=== PATIENT | female | born 1940 | race Caucasian/White ===

== ENCOUNTER 2023-05-27 20:51 | Emergency (ER) | payer MEDICARE, OTHER, SELFPAY ==
--- NOTE | ~2023-05-27 | XR_ITS ---
EXAMINATION: XR CHEST CLINICAL INFORMATION: MS COMPARISON: None available. TECHNIQUE: Frontal view of the chest was obtained. FINDINGS: There is mild cardiac enlargement. No evidence of CHF. Bibasilar atelectasis is present. No focal consolidations with air bronchograms. Tiny amount of blunting of the right lateral costophrenic angle is present. No left pleural effusion. There is a probable old healed fracture involving the proximal right humerus. XR/XR chest 1V IMPRESSION: Mild cardiomegaly. No acute intrathoracic disease.
[2023-05-27 21:00] VITALS: BP 139/85; BP 144/82; PULSE 82; PULSE 83; RESP 20; TEMP 36.8; O2SAT 92; O2SAT 95; BMI 27.9
[2023-05-27 21:30] VITALS: PULSE 75; RESP 16; TEMP 36.8; O2SAT 99
--- NOTE | 2023-05-27 21:34 | ECG_ITS ---
Test Reason : SOB Blood Pressure : / mmHG Vent. Rate : 074 BPM Atrial Rate : 074 BPM P-R Int : 134 ms QRS Dur : 080 ms QT Int : 420 ms P-R-T Axes : 060 008 087 degrees QTc Int : 466 ms Normal sinus rhythm Nonspecific T wave abnormality Abnormal ECG No previous ECGs available Referred By: Anibal García Electronically Signed By:STEPHON BETTENCOURT MD
[2023-05-27 21:35] VITALS: BP 132/74
--- NOTE | 2023-05-27 21:48 | ED_ITS ---
HPI - General Adult General Chief complaint: Weakness Stated complaint: FEELING SICK X1WK, WEAK, NAUSEA, CANT EAT Time Seen by Provider: 05/27/23 21:24 Source: patient Mode of arrival: EMS Limitations: no limitations History of Present Illness HPI narrative: Patient 83 years old with no significant past medical history not on any medication no history of dementia comes here with family for feeling weak and little out for last 1 week patient lives alone for last 1 week patient does not feel good not drinking or eating much feel fatigued had subjective fever earlier been coughing for last 1 week mostly dry no abdominal pain no urinary complaint patient admitted x3 with hard of hearing Related Data Previous Rx's Medication Instructions Recorded benzonatate 200 mg capsule 200 mg PO TID PRN cough #30 caps 05/27/23 cefuroxime axetil 250 mg tablet 250 mg PO BID 7 days #14 tabs 05/27/23 Allergies Allergy/AdvReac Type Severity Reaction Status Date / Time No Known Allergies Allergy Verified 05/27/23 21:31 Review of Systems 2 Review of Systems: Yes all other systems are reviewed and are negative [facility] Social History Social History Smoked in Last 30 Days: No Use of substances other than those prescribed or required for medical reasons: No Advance Directives: No Advance Directives Information Provided: Yes Physical Exam ED Vital Signs: Vital Signs - 24 hr 05/27/23 21:00 05/27/23 21:30 05/27/23 21:35 Temperature 98.3 F 98.3 F Pulse Rate 83 75 Respiratory Rate 20 16 Blood Pressure 139/85 132/74 Pulse Oximetry 95 99 Oxygen Delivery Method Nasal Cannula Room Air BMI result Body Mass Index 27.9 Appearance: Alert. Oriented X3. No acute distress. hard of hearing Eyes: PERRLA, No Nystagmus ENT: Pharynx normal. Oral Mucosa dry Neck: Normal inspection. Neck supple. CVS: Normal heart rate and rhythm. Pulses normal. Respiratory: No respiratory distress. Equal air entry bilateral, no wheezing/rales/rhonchi Abdomen: Soft and nontender. Bowel sounds are present, no mass palpable, no CVA tenderness Skin: Skin warm and dry. Normal skin color. Normal skin turgor. Extremities: No lower extremity edema. No calf tenderness Neuro: Oriented X 3. No motor deficit. No sensory deficit.No cerebellar signs , cranial nerves II-XII intact Medications Administered Discontinued Medications Generic Name Dose Route Start Last Admin Trade Name Freq PRN Reason Stop Dose Admin Sodium Chloride 1,000 mls @ 999 mls/hr 05/27/23 21:31 05/27/23 23:38 Ns IV 05/27/23 22:31 Infused .Q1H1M ONE Infusion Ceftriaxone Sodium 1 gm/ 50 mls @ 100 mls/hr 05/27/23 22:42 05/27/23 23:39 Sodium Chloride IV 05/27/23 23:11 Infused ONCE ONE Infusion Medical Decision Making Medical Decision Making [facility] Narrative: patient with increased weakness with no significant past medical history will check for metabolic etiology/infection level offered patient has UTI and COVID-19 chest x-ray negative infiltrate saturating 99% on room air will discharge patient home on Ceftin and supportive treatment Differential Diagnosis Differential Diagnoses: The differential diagnosis associated with the presentation includes UTI/metabolic encephalopathy/Randall /COVID/ viral infection Lab Data [facility] Lab Attestation statement: I reviewed the patient's lab results. 05/27/23 21:49 05/27/23 21:49 Labs: Lab Results 05/27/23 05/27/23 Range/Units 21:49 22:09 WBC 3.1 L (4.8-10.8) X10*3/uL RBC 5.36 (4.20-5.50) X10*6/uL Hgb 15.7 (12.0-16.0) g/dl Hct 47.2 H (37.0-47.0) % MCV 88.1 (80.0-98.0) fL MCH 29.3 (27.0-33.0) pg MCHC 33.3 (31.0-35.0) g/dl RDW 13.1 (11.0-16.0) % Plt Count 59 L (160-400) X10*3/uL MPV 11.4 (9.4-12.3) fL Immature Gran % (Auto) 0.0 (0.0-0.4) % Neut % (Auto) 72.9 (45-73) % Lymph % (Auto) 14.4 L (20-40) % [place] % (Auto) 12.7 H (2-11) % Eos % (Auto) 0.0 (0-4) % Baso % (Auto) 0.0 (0-2) % Lymph # (Auto) 0.4 L (1.2-4.9) X10*3/uL [place] # (Auto) 0.4 (0.1-1.2) X10*3/uL Eos # (Auto) 0.0 (0.0-0.4) X10*3/uL Baso # (Auto) 0.0 (0.0-0.2) X10*3/uL Abs Immat Gran (auto) 0.00 (0.00-0.03) X10*3/uL Absolute Neuts (auto) 2.2 (2.0-8.3) x10*3/uL Absolute Nucleated RBC 0.000 (0.0-0.012) X10*3/uL Nucleated RBC % (auto) 0.0 (0.0-0.2) /100WBC Smear Tech's Comments VERIFIED Sodium 141 (135-145) mmol/L Potassium 4.0 (3.3-5.1) mmol/L Chloride 102 (96-108) mmol/L Carbon Dioxide 23 (22-29) mmol/L Anion Gap 20 (12-20) BUN 30 H (9-16) mg/dL Creatinine 0.97 (0.5-1.4) mg/dL Estim Creat Clear Calc 39.8 Estimated GFR 55 Random Glucose 129 H (60-115) mg/dL Lactic Acid 1.9 (0.5-2.0) mmol/L Calcium 9.2 (8.4-10.2) mg/dL Magnesium 2.4 (1.6-2.6) mg/dL Total Bilirubin 0.9 (0.0-1.0) mg/dL AST 39 H (5-31) U/L ALT 35 H (0-31) U/L Alkaline Phosphatase 50 (39-117) U/L Total Protein 7.5 (6.5-8.0) g/dL Albumin 4.0 (3.5-5.0) g/dL Lipase 37 (8-78) U/L Urine Color Dark Yellow Urine Appearance Cloudy Urine pH 5.5 (5.0-9.0) Ur Specific [place] 1.020 (1.005-1.025) Urine Protein 30 (1+) H (Neg-Trace) mg/dL Urine Glucose (UA) Negative (Negative) mg/dL Urine Ketones 40 (Negative) mg/dL Urine Blood Small (1+) H (Negative) Urine Nitrite Negative (Negative) Ur Leukocyte Esterase Small (1+) H (Negative) Urine RBC 6-10 H (0-2) /HPF Urine WBC 21-50 H (0-5) /HPF Ur Squamous Epith Cells 11-20 (0-2) /HPF Urine Bacteria 2+ (None Seen) Hyaline Casts >20 (0-2) /LPF COVID-19 (BILL) Positive A (Negative) COVID-19 Clin Com See Note Independent Interpretation I performed an independent interpretation of an: EKG Interpretation: normal sinus rhythm heart rate 74 beats per minute normal interval normal axis no acute ST T wave change no acute ischemia Discharge Plan Discharge Clinical Impression: COVID-19, Acute UTI Patient Disposition: Home, Self-Care Instructions: Urinary Tract Infection in Older Adults (ED), COVID-19 (Coronavirus Disease 2019) (ED) Additional Instructions: drink plenty of fluids social distancing as Advised cough drops and antibiotic as prescribed follow-up with PCP as needed Prescriptions: New cefuroxime axetil 250 mg tablet 250 mg PO BID 7 Days Qty: 14 0RF benzonatate 200 mg capsule 200 mg PO TID PRN (Reason: cough) Qty: 30 0RF
[2023-05-27 22:03] LABS: Hemoglobin 15.7 g/dl (12.0-16.0); MANUAL DIFF FLAG SCAN; PLT CLUMP 1; SCAN SMEAR FLAG 1
[2023-05-27 22:05] LABS: COVID-19 Test Positive (Negative); Hematocrit 47.2 % (37.0-47.0); IDNOW Serial# BCCEAD1C; Lymphocytes Absolute Auto 0.4 X10*3/uL (1.2-4.9); Lymphocytes Percent Auto 14.4 % (20-40); Mean Corpuscular HGB Conc 33.3 g/dl (31.0-35.0); Mean Corpuscular Hemoglobin 29.3 pg (27.0-33.0); Mean Corpuscular Volume 88.1 fL (80.0-98.0); Mean Platelet Volume 11.4 fL (9.4-12.3); Monocytes Absolute Auto 0.4 X10*3/uL (0.1-1.2); Monocytes Percent Auto 12.7 % (2-11); Neutrophils Absolute Auto 2.2 x10*3/uL (2.0-8.3); Neutrophils Percent Auto 72.9 % (45-73); Red Blood Count 5.36 X10*6/uL (4.20-5.50); Red Cell Distribution Width 13.1 % (11.0-16.0)
[2023-05-27 22:06] LABS: White Blood Count 3.1 X10*3/uL (4.8-10.8)
[2023-05-27 22:07] LABS: Platelet Count 59 X10*3/uL (160-400)
[2023-05-27 22:10] LABS: Lactic Acid 1.9 mmol/L (0.5-2.0)
[2023-05-27] MEDS: 0.9 % Sodium Chloride 1,000 ML 999 ML IV (22:12)
[2023-05-27 22:15] LABS: Alanine Aminotransferase 35 U/L (0-31); Alkaline Phosphatase 50 U/L (39-117); Anion Gap 20 (12-20); Aspartate Amino Transferase 39 U/L (5-31); Bilirubin Total 0.9 mg/dL (0.0-1.0); Blood Urea Nitrogen 30 mg/dL (9-16); Calcium 9.2 mg/dL (8.4-10.2); Carbon Dioxide 23 mmol/L (22-29); Chloride 102 mmol/L (96-108); Creatinine Clr Calc Pharmacy 39.8; Estimated Glomerular Filt Rate 55; Glucose Random 129 mg/dL (60-115); Lipase 37 U/L (8-78); Magnesium 2.4 mg/dL (1.6-2.6); Sodium 141 mmol/L (135-145); Total Protein 7.5 g/dL (6.5-8.0)
[2023-05-27 22:17] LABS: Appearance Urine Cloudy; Color Urine Dark Yellow; Glucose Urine UA Negative (Negative); Leukocyte Esterase Urine Small (1+) (Negative); Nitrite Urine Negative (Negative); PH 5.5 (5.0-9.0); UMIC TRIGGER UACC YES; Urine Blood Small (1+) (Negative); Urine Ketones 40 mg/dL (Negative); Urine Protein 30 (1+) mg/dL (Neg-Trace)
[2023-05-27 22:28] LABS: Bacteria Urine 2+ (None Seen); Hyaline Casts Urine >20 /LPF (0-2); UACC Culture Trigger YES; WBC Urine 21-50 /HPF (0-5)
[2023-05-27 22:30] LABS: SLIDE REVIEW VERIFIED
--- NOTE | 2023-05-27 22:40 | PC.NURSE ---
ivf infusing via iv inserted by ems L. AC. precautions in place. son at bedside. call desai within reach.
[2023-05-27] MEDS: cefTRIAXone sodium 1 GM in 0.9 % Sodium Chloride 50 ML IV (22:57)
[2023-05-28] VITALS: PULSE 78; RESP 16; O2SAT 95
[2023-05-28] MEDS: Benzonatate 100 MG CAPSULE 200 MG PO (00:06)
== END 2023-05-28 00:38 | disposition home or self-care (01) ==
PROVIDERS: Emergency Provider Internal Medicine
DX: U07.1 COVID-19 (principal); N39.0 Urinary tract infection, site not specified; R11.2 Nausea with vomiting, unspecified; R06.02 Shortness of breath; R94.31 Abnormal electrocardiogram [ECG] [EKG]; R50.9 Fever, unspecified; R05.9 Cough, unspecified; Z79.899 Other long term (current) drug therapy
CPT/HCPCS: 36415; 71045; 80053; 81001; 83605; 83690; 83735; 85025; 87086; 87088; 87147; 87186; 87635; 93005; 96361; 96374; 99284; 99285; J0696

== ENCOUNTER 2023-06-05 13:07 | Inpatient (IN) | payer MEDICARE, OTHER, SELFPAY ==
--- NOTE | ~2023-06-05 | XR_ITS ---
EXAMINATION: XR CHEST CLINICAL INFORMATION: Hypoxia COMPARISON: 05/27/2023 TECHNIQUE: 2 views of the chest were obtained. FINDINGS: Heart and mediastinum within normal limits. Bilateral mid to lower patchy pulmonary opacities. No effusions. Bones are demineralized. XR/XR chest 2V IMPRESSION: Likely multifocal bilateral pneumonias. Follow-up to complete resolution recommended.
--- NOTE | ~2023-06-05 | CT_ITS ---
EXAMINATION: CT HEAD WITHOUT CONTRAST CLINICAL INFORMATION: Dementia COMPARISON: None available. TECHNIQUE: Contiguous axial imaging was performed from the skull base to vertex without intravenous administration of contrast. This CT examination was performed using dose optimization techniques as appropriate, variously including the following: *Automated exposure control *Adjustment of mA and/or kV according to patient size (this includes techniques or standardized protocols for targeted exams where dose is matched to indication/reason for exam; i.e. extremities or head) *Use of iterative reconstruction technique DLP: 547 mGy-cm FINDINGS: There is underlying atrophy. Ventricular dilatation is slightly disproportionately more prominent than sulcal dilatation. Periventricular white matter changes are seen. Small left lacunar infarct. No evolving infarct, mass lesion, mass effect or midline shift. No hemorrhage or extra-axial fluid collections. Sinuses and mastoids are free of disease. Bony structures are intact. Soft tissues are unremarkable. CT/CT head/brain wo IV con IMPRESSION: No acute intracranial pathology. Chronic small vessel ischemia and volume loss. Slightly disproportionate ventricular versus sulcal dilatation, normal pressure hydrocephalus not entirely excluded, correlate clinically.
[2023-06-05 13:17] VITALS: BP 140/78; BP 178/88; PULSE 89; PULSE 96; RESP 16; TEMP 36.7; O2SAT 94; O2SAT 95; BMI 26.6
--- NOTE | 2023-06-05 13:38 | ED.GENADULT ---
HPI - General Adult General Chief complaint: General Medical Stated complaint: UTI Time Seen by Provider: 06/05/23 13:18 Source: patient and EMS Mode of arrival: ambulatory Limitations: altered mental status History of Present Illness HPI narrative: 83-year-old female seen here last week per the family had no history of dementia. Patient denying UTI and was treated is not getting any better per the family. Patient was found to be hypoxic by EMS in the 80s and required several L of oxygen she is not normally on oxygen. Patient has been weak nauseous and not eating. Patient abnormal x-ray and labs other than the UTI patient continues to be altered concerned that this could be acute intracranial injury no CT imaging was done also continued UTI patient is not hypoxic this could be pneumonia or something else that is causing her symptoms Related Data Previous Rx's Medication Instructions Recorded benzonatate 200 mg capsule 200 mg PO TID PRN cough #30 caps 05/27/23 cefuroxime axetil 250 mg tablet 250 mg PO BID 7 days #14 tabs 05/27/23 Allergies Allergy/AdvReac Type Severity Reaction Status Date / Time No Known Allergies Allergy Verified 05/27/23 21:31 Review of Systems Review of Systems: Review of systems: General: Altered per family Patient denies any fever chills recent illness or falls Musculoskeletal: Denies back pain or body aches or other injuries HEENT: denies headache, runny nose, ear pain Respiratory: denies shortness of breath, cough Cardiovascular: no chest pain or palpitations : denies dysuria, frequency Abdomen: no nausea vomiting denies abdominal pain Extremities: no swelling, no pain Skin: no diaphoresis Yes all other systems are reviewed and are negative [facility] Social History Social History Advance Directives: No Physical Exam ED Vital Signs: Vital Signs - 24 hr 06/05/23 13:17 06/05/23 16:00 Temperature 98.1 F Pulse Rate 89 83 Respiratory Rate 16 20 Blood Pressure 178/88 H 149/95 H Pulse Oximetry 95 95 Oxygen Delivery Method Nasal Cannula Nasal Cannula Oxygen Flow Rate 3 BMI result Body Mass Index 26.6 Neurological exam: CN II- XII tested. Patient is alert and oriented to person place and time. Patient has no dysphagia or dysarthia, denies good vision in all four vision bloom no nystagmus on exam, good strength to upper and lower extremities with normal reflexes to brachioradialis, wrist, patella and achilles. Negative romberg, good finger to nose and heel to enciso. General: Well-appearing well-nourished in no signs of distress HEENT: Normocephalic atraumatic Neck: No signs of JVD, no masses no tenderness or lymphadenopathy Cardiovascular: Regular rate and rhythm Respiratory: Clear to auscultation bilaterally Abdomen: Soft nontender no masses Extremities: Normal pedal pulses no signs of edema Skin: Dry warm no rashes Back: No tenderness full ROM NIH Stroke Scale Internal: Initial- Upon Arrival Level of Consciousness: Alert Level of Consciousness Questions: Answers both questions correctly Level of Consciousness Commands: Performs both tasks correctly Best Gaze: Normal Visual: No visual loss Facial Palsy: Normal Motor Arm (Right): No drift Motor Arm (Left): No drift Motor Leg (Right): No drift Motor Leg (Left): No drift Limb Ataxia: Absent Sensory: Normal Best Language: No aphasia Dysarthia: Normal Extinction and Inattention: No abnormality Score: 0 Course Course Course Narrative: 1416 concerning for pneumonia I will start on antibiotics at this time. Reevaluation(s) Reevaluation #1: 1607 labs and serology show the patient is covid positive. Patient has a daughter at the bedside. i will give decadron and admit to medicine she is requiring oxygen at this time. Was covid positive last time she was here but now with pneumnoia and hypoxia. I did communicate with hospitalist about admission. Medications Administered Discontinued Medications Generic Name Dose Route Start Last Admin Trade Name Freq PRN Reason Stop Dose Admin Sodium Chloride 1,000 mls @ 999 mls/hr 06/05/23 13:45 06/05/23 14:28 Ns IV 06/05/23 14:45 999 mls/hr .Q1H1M VALERIANO Administration Piperacillin Sod/Tazobactam 100 mls @ 200 mls/hr 06/05/23 14:14 06/05/23 16:04 Sod 4.5 gm/ Sodium Chloride IV 06/05/23 14:43 200 mls/hr ONCE ONE Administration Medical Decision Making Medical Decision Making MDM Narrative: Patient is hypoxic I will do VBG concern for altered mental status ACS hypoxia with change in mental status I will get CT head is there is done last time patient was here. Differential Diagnosis Differential Diagnoses: The differential diagnosis associated with the presentation includes Acute intracranial hemorrhage acute dementia and delirium pneumonia hypoxia less likely PE ACS also on the differential I also sent off a pneumonia as could be related to some metabolic issue as well as septic workup since Admission/Observation Consideration of admission/observation: Escalation of care including admission/observation considered Consult Healthcare Provider Management of the patient was discussed with: Hospitalist and Account Receivable Clerk [phone] Faust Lab Data MDM Lab Attestation statement: I reviewed the patient's lab results. 06/05/23 15:00 06/05/23 15:00 Labs: Lab Results 06/05/23 06/05/23 06/05/23 Range/Units 15:00 15:14 15:37 WBC 5.4 (4.8-10.8) X10*3/uL RBC 4.68 (4.20-5.50) X10*6/uL Hgb 13.9 (12.0-16.0) g/dl Hct 41.3 (37.0-47.0) % MCV 88.2 (80.0-98.0) fL MCH 29.7 (27.0-33.0) pg MCHC 33.7 (31.0-35.0) g/dl RDW 12.6 (11.0-16.0) % Plt Count 227 D (160-400) X10*3/uL MPV 10.5 (9.4-12.3) fL Immature Gran % (Auto) 0.6 H (0.0-0.4) % Neut % (Auto) 75.0 H (45-73) % Lymph % (Auto) 9.5 L (20-40) % Will % (Auto) 13.8 H (2-11) % Eos % (Auto) 0.7 (0-4) % Baso % (Auto) 0.4 (0-2) % Lymph # (Auto) 0.5 L (1.2-4.9) X10*3/uL Will # (Auto) 0.7 (0.1-1.2) X10*3/uL Eos # (Auto) 0.0 (0.0-0.4) X10*3/uL Baso # (Auto) 0.0 (0.0-0.2) X10*3/uL Abs Immat Gran (auto) 0.03 (0.00-0.03) X10*3/uL Absolute Neuts (auto) 4.0 (2.0-8.3) x10*3/uL Absolute Nucleated RBC 0.000 (0.0-0.012) X10*3/uL Nucleated RBC % (auto) 0.0 (0.0-0.2) /100WBC VBG pH 7.46 H (7.32-7.43) VBG pCO2 41 mmHg VBG pO2 38 mmHg VBG HCO3 29 H (22-26) mmol/L VBG O2 Saturation 56.0 % VBG Base Excess 5.7 mmol/L Sodium 142 (135-145) mmol/L Potassium 3.4 (3.3-5.1) mmol/L Chloride 106 (96-108) mmol/L Carbon Dioxide 24 (22-29) mmol/L Anion Gap 15 (12-20) BUN 17 H (9-16) mg/dL Creatinine 0.59 (0.5-1.4) mg/dL Estim Creat Clear Calc 63.9 Estimated GFR > 60 Random Glucose 93 (60-115) mg/dL Lactic Acid 1.0 (0.5-2.0) mmol/L Calcium 8.7 (8.4-10.2) mg/dL Total Bilirubin 0.8 (0.0-1.0) mg/dL Direct Bilirubin 0.4 (0.0-0.5) mg/dL AST 21 (5-31) U/L ALT 16 (0-31) U/L Alkaline Phosphatase 43 (39-117) U/L Ammonia 22 (13-55) umol/L Troponin I High Sens < 2.7 (<3.5-17.0) ng/L Total Protein 6.5 (6.5-8.0) g/dL Albumin 3.1 L (3.5-5.0) g/dL Lipase 33 (8-78) U/L Urine Color Dark Yellow Urine Appearance Clear Urine pH 6.0 (5.0-9.0) Ur Specific [place] 1.020 (1.005-1.025) Urine Protein Trace (Neg-Trace) mg/dL Urine Glucose (UA) Negative (Negative) mg/dL Urine Ketones 80 (Negative) mg/dL Urine Blood Negative (Negative) Urine Nitrite Negative (Negative) Ur Leukocyte Esterase Negative (Negative) Urine Opiates Screen Not Detected (Not Detect) Urine Fentanyl Screen Not Detected (Not Detect) Ur Barbiturates Screen Not Detected (Not Detect) Ur Phencyclidine Scrn Not Detected (Not Detect) Ur Amphetamines Screen Not Detected (Not Detect) U Benzodiazepines Scrn Not Detected (Not Detect) Urine Cocaine Screen Not Detected (Not Detect) U Marijuana (THC) Screen Not Detected (Not Detect) Ethyl Alcohol < 10 mg/dL COVID-19 (BILL) Positive A (Negative) COVID-19 Clin Com See Note ABG Data Attestation ABG: I personally reviewed and interpreted this ABG as follows: Independent Interpretation I performed an independent interpretation of an: EKG, Rhythm Strip, Plain X-Ray and CT Scan Interpretation: chest XR concerning for left sided infiltrate I will start on zosyn and vancomycin Radiology Impression Discussion of test interpretation with radiology: I have reviewed the radiologist's reading. Independent Historian Daughter is at the bedside now. External Record Review External record reviewed: Inpatient record, Office record and Prior outpatient labs Social Determinants Patient?s care significantly limited by Social Determinants of Health including: Inadequate housing Discharge Plan Discharge Clinical Impression: COVID-19, Hypoxia, Pneumonia Patient Disposition: Admitted As Inpatient Prescriptions: No Action cefuroxime axetil 250 mg tablet 250 mg PO BID 7 Days Qty: 14 0RF benzonatate 200 mg capsule 200 mg PO TID PRN (Reason: cough) Qty: 30 0RF
--- NOTE | 2023-06-05 13:39 | ECG_ITS ---
Test Reason : AMS Blood Pressure : / mmHG Vent. Rate : 075 BPM Atrial Rate : 075 BPM P-R Int : 152 ms QRS Dur : 086 ms QT Int : 408 ms P-R-T Axes : 059 -02 046 degrees QTc Int : 455 ms Normal sinus rhythm Normal ECG When compared with ECG of 27-MAY-2023 22:32, Nonspecific T wave abnormality, improved in Anterolateral leads Referred By: Gama Stewart Electronically Signed By:STEPHON BETTENCOURT MD
[2023-06-05] MEDS: 0.9 % Sodium Chloride 1,000 ML 999 ML IV (14:28)
[2023-06-05 15:16] LABS: MANUAL DIFF FLAG NO
[2023-06-05 15:25] LABS: Ammonia 22 umol/L (13-55); Basophils Percent Auto 0.4 % (0-2); Eosinophils Percent Auto 0.7 % (0-4); Hematocrit 41.3 % (37.0-47.0); Hemoglobin 13.9 g/dl (12.0-16.0); Imm Gran Abs Auto 0.03 X10*3/uL (0.00-0.03); Imm Gran Pct Auto 0.6 % (0.0-0.4); Lymphocytes Absolute Auto 0.5 X10*3/uL (1.2-4.9); Lymphocytes Percent Auto 9.5 % (20-40); Mean Corpuscular HGB Conc 33.7 g/dl (31.0-35.0); Mean Corpuscular Hemoglobin 29.7 pg (27.0-33.0); Mean Corpuscular Volume 88.2 fL (80.0-98.0); Mean Platelet Volume 10.5 fL (9.4-12.3); Monocytes Absolute Auto 0.7 X10*3/uL (0.1-1.2); Monocytes Percent Auto 13.8 % (2-11); Platelet Count 227 X10*3/uL (160-400); Red Blood Count 4.68 X10*6/uL (4.20-5.50); Red Cell Distribution Width 12.6 % (11.0-16.0); White Blood Count 5.4 X10*3/uL (4.8-10.8)
[2023-06-05 15:34] LABS: COVID-19 Test Positive (Negative); IDNOW Serial# 08D9AD1C
[2023-06-05 15:34] LABS: VBG Base Excess 5.7 mmol/L; VBG HCO3 29 mmol/L (22-26); VBG pCO2 41 mmHg; VBG pH 7.46 (7.32-7.43); VBG pO2 38 mmHg
[2023-06-05 15:36] LABS: Alanine Aminotransferase 16 U/L (0-31); Albumin Level 3.1 g/dL (3.5-5.0); Alkaline Phosphatase 43 U/L (39-117); Anion Gap 15 (12-20); Aspartate Amino Transferase 21 U/L (5-31); Bilirubin Direct 0.4 mg/dL (0.0-0.5); Bilirubin Total 0.8 mg/dL (0.0-1.0); Blood Urea Nitrogen 17 mg/dL (9-16); Calcium 8.7 mg/dL (8.4-10.2); Carbon Dioxide 24 mmol/L (22-29); Chloride 106 mmol/L (96-108); Creatinine Clr Calc Pharmacy 63.9; Estimated Glomerular Filt Rate > 60; Ethanol < 10 mg/dL; Glucose Random 93 mg/dL (60-115); Lipase 33 U/L (8-78); Potassium 3.4 mmol/L (3.3-5.1); Sodium 142 mmol/L (135-145); Total Protein 6.5 g/dL (6.5-8.0); Venous Blood Gas Refer to POC result
[2023-06-05 15:41] LABS: Troponin-I High Sensitivity < 2.7 ng/L (<3.5-17.0)
--- NOTE | 2023-06-05 15:42 | PC.NURSE ---
pt is difficult blood draw. per ANDRIY HASKINS to send 1 set of blood cultures before starting ABX. Urine obtained via straight cath and sent to lab prior to ABX
[2023-06-05 15:45] LABS: Appearance Urine Clear; Color Urine Dark Yellow; Glucose Urine UA Negative (Negative); Leukocyte Esterase Urine Negative (Negative); Nitrite Urine Negative (Negative); Urine Blood Negative (Negative); Urine Ketones 80 mg/dL (Negative); Urine Protein Trace mg/dL (Neg-Trace)
[2023-06-05 15:50] LABS: Amphetamine Screen Urine Not Detected (Not Detect); Barbiturates, Urine Not Detected (Not Detect); Benzodiazepines Screen Urine Not Detected (Not Detect); Cannabinoid Screen Urine Not Detected (Not Detect); Cocaine Screen Urine Not Detected (Not Detect); Fentanyl, urine Not Detected (Not Detect); Opiate Screen Urine Not Detected (Not Detect); Phencyclidine Screen Urine Not Detected (Not Detect)
[2023-06-05 16:00] VITALS: BP 149/95; PULSE 83; RESP 20; O2SAT 95
[2023-06-05] MEDS: Piperacillin Sodium/Tazobactam 4.5 GM in 0.9 % Sodium Chloride 100 ML IV (16:04)
--- NOTE | 2023-06-05 16:17 | PC.NURSE ---
abx started per order. pt still on 3L NC to sat about 95%. Room air about 88%.
[2023-06-05] MEDS: dexAMETHasone sod phosphate 10 MG/ML VIAL 6 MG IVPUSH (16:43)
--- NOTE | 2023-06-05 16:51 | PHA.MEDREC ---
Pharmacy Consult ? Medication Reconciliation Pharmacy has completed the medication reconciliation. Patient reported only vitamins. Olga Wright, PharmD
[2023-06-05] MEDS: vancomycin HCL 1,500 MG in 0.9 % Sodium Chloride 500 ML 333.33 MG IV (16:53)
--- NOTE | 2023-06-05 18:01 | PM.IMHP ---
History of Present Illness Date of Service: 06/05/23 Chief Complaint: Weakness 83-year-old female patient with no significant past medical history was seen at [facility] 05 27 23 due to feeling sick for 1 week, with weakness nausea decreased by mouth intake patient was diagnosed to have COVID-19 infection her urinalysis was positive she had normal WBC count, normal chest x-ray had no hypoxia therefore patient was discharged home on by mouth Ceftin 250 mg 1 tablet twice daily for 7 days, patient presented again to [facility] today due to generalized weakness ,decreased by mouth intake, and nausea, patient denies fevers, chills, no lightheadedness, no dizziness, no headaches, denies urinary symptoms ,of urgency or frequency, no URI symptoms, no cough, complain of mild shortness of breath, due to above symptoms EMS was called and patient was noted to have hypoxia finger oximetry in 80s therefore patient was placed on oxygen and was brought into the ER in ED CT head showed no acute abnormality, urinalysis was unremarkable, CBC benign, normal electrolytes and renal function, repeat chest x-ray showed bilateral multi focal pneumonia, urine culture from 05/24 showed Proteus mirabilis sensitive to ceftriaxone, at present patient is awake alert answering question appropriately, and ED patient treated with 1 L of IV fluids, IV vancomycin and IV Zosyn and now being admitted to [facility] due to acute hypoxic respiratory failure likely due to COVID-19 infection. Review of Systems Review of Systems: General no headache no dizziness no fever chills, feels weak. CVS no chest pain, no palpitation. Respiratory no cough ,mild sob. Gastrointestinal no nausea ,no vomiting, no abdominal pain, decreased appetite. no urgency, no frequency Skin no rash PMFSH Pertinent family history: Patient not aware of her family history Social History Household Members: None Housing: House Do you presently have visiting nurse or other home services: No Patient Tobacco Use Status: Never used Tobacco Smoked in Last 30 Days: No Use of substances other than those prescribed or required for medical reasons: No Advance Directives: No Advance Directives Information Provided: No (declined) Advance Directives on File: No Do you have thoughts of harming others: None Recently lost weight without trying: No Nutrition Risks: No Nutritional Risk Patient : No : No service: No Meds Allergies Allergy/AdvReac Type Severity Reaction Status Date / Time No Known Allergies Allergy Verified 05/27/23 21:31 Active Medications: Current Medications Acetaminophen (Acetaminophen 325 Mg Tablet) 650 mg PO Q6H PRN PRN Reason: Pain, Mild (Pain Scale 1-3) Calcium Carbonate (Calcium Carbonate 500 Mg Tablet) 500 mg PO DAILY [facility] Dexamethasone Sodium Phosphate (Dexamethasone Sod Phosphate 4 Mg/Ml Vial) 6 mg IVPUSH DAILY [facility] Enoxaparin Sodium (Enoxaparin Sodium 40 Mg/0.4 Ml Syringe) 40 mg SUBCUT Q24H [facility] Guaifenesin/Dextromethorphan (Guaifenesin Dm 100/10/5 Ml 5 Ml Syrup) 10 ml PO TID [facility] Doxycycline Hyclate 100 mg/ (Sodium Chloride) 250 mls @ 166.67 mls/hr IV Q12H [facility] Magnesium Hydroxide (Milk Of Magnesia 30 Ml Oral.Susp) 30 ml PO DAILY PRN PRN Reason: Constipation Melatonin (Melatonin 3 Mg Tablet) 3 mg PO BEDTIME PRN PRN Reason: Insomnia Multivitamins/Vitamin C (Multivitamin Tablet) 1 tab PO DAILY [facility] Ondansetron HCl (Ondansetron Hcl 4 Mg/2 Ml Vial) 4 mg IVPUSH Q8H PRN PRN Reason: Nausea and Vomiting Sodium Chloride (0.9 % Sodium Chloride Flush 3 Ml Syringe) 3 ml IVFLUSH QSHIFT [facility] Home Medications Medication Instructions Recorded Confirmed Last Taken Type calcium carbonate 500 mg calcium 500 mg PO DAILY 06/05/23 06/05/23 Unknown History (1,250 mg) tablet multivitamin 1 tab PO DAILY 06/05/23 06/05/23 Unknown History Physical Exam Vital Signs and Narrative: Vital Signs: Last Vital Signs Temp 98.1 F 06/05/23 13:17 Pulse 83 06/05/23 16:00 Resp 20 06/05/23 16:00 BP 149/95 H 06/05/23 16:00 Pulse Ox 95 06/05/23 16:00 O2 Del Method Nasal Cannula 06/05/23 16:00 O2 Flow Rate 3 06/05/23 16:00 Oxygen Flow Rate 3 06/05/23 13:17 BMI result Body Mass Index 26.6 Const: Other: General awake alert x3 resting comfortably in no acute distress. anicteric sclera Neck supple no JVD. CVS regular rate rhythm, Respiratory lungs bilateral expiratory rhonchi, no respiratory distress no use of accessory muscles Gastrointestinal abdomen soft, non tender, bowel sounds audible, no guarding , no rigidity. Extremities no edema. Neuro nonfocal ,moving all 4 extremity, speech clear. Skin no rash Psych appropriate affect Results Labs 06/05/23 15:00 06/05/23 15:00 Labs: Laboratory Results - last 24 hr 06/05/23 06/05/23 06/05/23 15:00 15:14 15:37 MCV 88.2 MCH 29.7 MCHC 33.7 RDW 12.6 Plt Count 227 D MPV 10.5 Immature Gran % (Auto) 0.6 H Neut % (Auto) 75.0 H Lymph % (Auto) 9.5 L [place] % (Auto) 13.8 H Eos % (Auto) 0.7 Baso % (Auto) 0.4 Lymph # (Auto) 0.5 L [place] # (Auto) 0.7 Eos # (Auto) 0.0 Baso # (Auto) 0.0 Abs Immat Gran (auto) 0.03 Absolute Neuts (auto) 4.0 Absolute Nucleated RBC 0.000 Nucleated RBC % (auto) 0.0 VBG pH 7.46 H VBG pCO2 41 VBG pO2 38 VBG HCO3 29 H VBG O2 Saturation 56.0 VBG Base Excess 5.7 Anion Gap 15 Estim Creat Clear Calc 63.9 Estimated GFR > 60 Random Glucose 93 Lactic Acid 1.0 Calcium 8.7 Total Bilirubin 0.8 Direct Bilirubin 0.4 AST 21 ALT 16 Alkaline Phosphatase 43 Ammonia 22 Total Protein 6.5 Albumin 3.1 L Lipase 33 Urine Color Dark Yellow Urine Appearance Clear Urine pH 6.0 Ur Specific [place] 1.020 Urine Protein Trace Urine Glucose (UA) Negative Urine Ketones 80 Urine Blood Negative Urine Nitrite Negative Ur Leukocyte Esterase Negative Urine Opiates Screen Not Detected Urine Fentanyl Screen Not Detected Ur Barbiturates Screen Not Detected Ur Phencyclidine Scrn Not Detected Ur Amphetamines Screen Not Detected U Benzodiazepines Scrn Not Detected Urine Cocaine Screen Not Detected U Marijuana (THC) Screen Not Detected Ethyl Alcohol < 10 COVID-19 (BILL) Positive A COVID-19 Clin Com See Note Imaging Radiologist's Impressions: Impressions Chest X-Ray 06/05/23 14:02 IMPRESSION: Likely multifocal bilateral pneumonias. Follow-up to complete resolution recommended. Head CT 06/05/23 14:32 IMPRESSION: No acute intracranial pathology. Chronic small vessel ischemia and volume loss. Slightly disproportionate ventricular versus sulcal dilatation, normal pressure hydrocephalus not entirely excluded, correlate clinically. Assessment and Plan (1) Pneumonia: Status: Acute (2) Hypoxia: Status: Acute (3) COVID-19: Status: Acute Plan 83-year-old female patient with no significant past medical history recently seen at [facility] on May 27 due to symptoms of generalized weakness poor by mouth intake and was diagnosed to have COVID-19 infection and UTI patient was discharged from ED on by mouth Ceftin for 1 week, and return back to ED for evaluation of persistent weakness , poor by mouth intake and nausea, CT head showed no acute abnormality chest x-ray showed multifocal bilateral pneumonia consistent with COVID 19 infection patient will be admitted to medical floor in isolation with a diagnosis of hypoxia with COVID-19 infection. Acute hypoxic respiratory failure due to pneumonia with COVID-19 infection/superadded bacterial infection. Admitted to isolation placed on IV Decadron, cough medication, vitamin-C, supportive care Received IV fluids, IV vancomycin and IV Zosyn in ED Will hold on further IV fluids , IV doxycycline for possible secondary pneumonia, chest x-ray findings most likely consistent with COVID-19 pneumonia will check procalcitonin level Wean oxygen as tolerated patient not on home oxygen Recent episode of UTI finished course of antibiotic urine culture grew Proteus mirabilis Generalized weakness/decreased by mouth intake and nausea most consistent with COVID-19 infection Supportive care, rest, antiemetics and analgesics DVT prophylaxis Lovenox subQ Code status full code discussed with patient's son Fred Selby In my clinical judgment patient need continued inpatient hospitalization for management of hypoxia related to COVID-19 infection. Quality Stroke Does the patient have a stroke diagnosis?: No VTE Prior VTE?: No VTE Risk Level:: Medical - moderate - high VTE Device Contraindication: Treatment Not Indicated VTE Drug Contraindication: N/A - Med Ordered
[2023-06-05 19:30] VITALS: BP 193/105; PULSE 77; RESP 18; TEMP 36.6; O2SAT 96
[2023-06-05] MEDS: Enoxaparin Sodium 40 MG/0.4 ML SYRINGE SUBCUT (19:30)
--- NOTE | 2023-06-05 19:34 | PC.NURSE ---
this rn assumed care of pt. pt a&o3. respirations even and unlabored,lung sounds clear bilaterally, pt on 2L nasal cannula sating between 95-96. pt abdomen soft non tender to touch. pt denies pain at this time. pt medicated per oct.
[2023-06-05] MEDS: guaiFENesin DM 100/10/5 ML 5 ML SYRUP 10 ML PO (22:05)
[2023-06-06] VITALS (7 sets, daily range): BP systolic 113–154; BP diastolic 66–83; PULSE 61–78; RESP 16–20; TEMP 36.4–36.7; O2SAT 92–98
[2023-06-06] MEDS: 0.9 % Sodium Chloride Flush 3 ML SYRINGE IVFLUSH ×4 (00:43→19:48)
--- NOTE | 2023-06-06 03:33 | PC.NURSE ---
pt resting comfortably in stretcher, respirations even and unlabored.
--- NOTE | 2023-06-06 05:36 | PC.NURSE ---
pt repositioned and purewick placed at this time.
[2023-06-06 06:00] LABS: Procalcitonin 0.02 ng/mL
--- NOTE | 2023-06-06 08:34 | MHC.CM.PN ---
IMM 06/06/23, Pt lives alone, she does not have any home health services or med equip., she has not used VNA services, or been to STR before. Her son will transport back home at DC. PCP: Kenzie Vance in [place]. Plan is home, self care. CM to follow and assist with DC plan as needed.
[2023-06-06] MEDS: Doxycycline Hyclate 100 MG in 0.9 % Sodium Chloride 250 ML 166.67 MG IV ×2 (08:46→19:47)
[2023-06-06] MEDS: Ascorbic Acid 500 MG TABLET PO (08:46)
[2023-06-06] MEDS: Multivitamin TABLET 1 TAB PO (08:46)
[2023-06-06] MEDS: guaiFENesin DM 100/10/5 ML 5 ML SYRUP 10 ML PO ×3 (08:46→19:48)
[2023-06-06] MEDS: dexAMETHasone sod phosphate 4 MG/ML VIAL 6 MG IVPUSH (08:46)
--- NOTE | 2023-06-06 09:08 | PC.NURSE ---
awake, alert and oriented with even and unlabored respirations. medicated per the MAR, antibiotics infusing. linens changed, purewick in place. patient eating breakfast.
--- NOTE | 2023-06-06 13:52 | PC.NURSE ---
Daughter would like follow up as to Dc planning course of of care etc. Antonia [phone]
--- NOTE | 2023-06-06 14:16 | HO.PM.IMPN ---
Subjective Subjective Date of Service: 06/06/23 Interval History: Being followed for hypoxic respiratory failure feeling better today ate breakfast, less tiredness, continue to require 2 L of oxygen finger oximetry stable 92-93%, denies fever, chills, no lightheadedness or dizziness. Review of Systems All other system reviewed and negative. Physical Exam Vital Signs: Vital Signs: Last Vital Signs Temp 97.5 F 06/06/23 12:00 Pulse 70 06/06/23 12:00 Resp 16 06/06/23 12:00 BP 133/78 06/06/23 12:00 Pulse Ox 93 06/06/23 12:00 O2 Del Method Nasal Cannula 06/06/23 12:00 O2 Flow Rate 3 06/06/23 12:00 Oxygen Flow Rate 3 06/05/23 13:17 BMI result Body Mass Index 26.6 Const: Other: General awake alert x3 resting comfortably in no acute distress. anicteric sclera Neck supple no JVD. CVS regular rate rhythm, Respiratory lungs bilateral expiratory rhonchi, no respiratory distress, no use of accessory muscles Gastrointestinal abdomen soft, non tender, bowel sounds audible, no guarding , no rigidity. Extremities no edema. Neuro nonfocal ,moving all 4 extremity, speech clear. Skin no rash Psych appropriate affect Objective Data Active Medications Acetaminophen (Acetaminophen 325 Mg Tablet) 650 mg PO Q6H PRN PRN Reason: Pain, Mild (Pain Scale 1-3) Ascorbic Acid (Ascorbic Acid 500 Mg Tablet) 500 mg PO DAILY [facility] Last Admin: 06/06/23 08:46 Dose: 500 mg Documented By: JORGE Calcium Carbonate (Calcium Carbonate 500 Mg Tablet) 500 mg PO DAILY [facility] Last Admin: 06/06/23 08:46 Dose: 500 mg Documented By: JORGE Dexamethasone Sodium Phosphate (Dexamethasone Sod Phosphate 4 Mg/Ml Vial) 6 mg IVPUSH DAILY [facility] Last Admin: 06/06/23 08:46 Dose: 6 mg Documented By: JORGE Enoxaparin Sodium (Enoxaparin Sodium 40 Mg/0.4 Ml Syringe) 40 mg SUBCUT Q24H [facility] Last Admin: 06/05/23 19:30 Dose: 40 mg Documented By: AMBER Guaifenesin/Dextromethorphan (Guaifenesin Dm 100/10/5 Ml 5 Ml Syrup) 10 ml PO TID [facility] Last Admin: 06/06/23 08:46 Dose: 10 ml Documented By: JORGE Doxycycline Hyclate 100 mg/ (Sodium Chloride) 250 mls @ 166.67 mls/hr IV Q12H [facility] Last Infusion: 06/06/23 12:22 Dose: Infused Documented By: MEAGHAN Magnesium Hydroxide (Milk Of Magnesia 30 Ml Oral.Susp) 30 ml PO DAILY PRN PRN Reason: Constipation Melatonin (Melatonin 3 Mg Tablet) 3 mg PO BEDTIME PRN PRN Reason: Insomnia Multivitamins/Vitamin C (Multivitamin Tablet) 1 tab PO DAILY [facility] Last Admin: 06/06/23 08:46 Dose: 1 tab Documented By: JORGE Ondansetron HCl (Ondansetron Hcl 4 Mg/2 Ml Vial) 4 mg IVPUSH Q8H PRN PRN Reason: Nausea and Vomiting Sodium Chloride (0.9 % Sodium Chloride Flush 3 Ml Syringe) 3 ml IVFLUSH QSHIFT [facility] Last Admin: 06/06/23 08:47 Dose: 3 ml Documented By: JORGE Labs 06/05/23 15:00 06/05/23 15:00 Labs: Laboratory Results - last 24 hr 06/05/23 06/05/23 06/05/23 15:00 15:14 15:37 MCV 88.2 MCH 29.7 MCHC 33.7 RDW 12.6 Plt Count 227 D MPV 10.5 Immature Gran % (Auto) 0.6 H Neut % (Auto) 75.0 H Lymph % (Auto) 9.5 L [place] % (Auto) 13.8 H Eos % (Auto) 0.7 Baso % (Auto) 0.4 Lymph # (Auto) 0.5 L [place] # (Auto) 0.7 Eos # (Auto) 0.0 Baso # (Auto) 0.0 Abs Immat Gran (auto) 0.03 Absolute Neuts (auto) 4.0 Absolute Nucleated RBC 0.000 Nucleated RBC % (auto) 0.0 VBG pH 7.46 H VBG pCO2 41 VBG pO2 38 VBG HCO3 29 H VBG O2 Saturation 56.0 VBG Base Excess 5.7 Anion Gap 15 Estim Creat Clear Calc 63.9 Estimated GFR > 60 Random Glucose 93 Lactic Acid 1.0 Calcium 8.7 Total Bilirubin 0.8 Direct Bilirubin 0.4 AST 21 ALT 16 Alkaline Phosphatase 43 Ammonia 22 Total Protein 6.5 Albumin 3.1 L Lipase 33 Procalcitonin Urine Color Dark Yellow Urine Appearance Clear Urine pH 6.0 Ur Specific [place] 1.020 Urine Protein Trace Urine Glucose (UA) Negative Urine Ketones 80 Urine Blood Negative Urine Nitrite Negative Ur Leukocyte Esterase Negative Urine Opiates Screen Not Detected Urine Fentanyl Screen Not Detected Ur Barbiturates Screen Not Detected Ur Phencyclidine Scrn Not Detected Ur Amphetamines Screen Not Detected U Benzodiazepines Scrn Not Detected Urine Cocaine Screen Not Detected U Marijuana (THC) Screen Not Detected Ethyl Alcohol < 10 COVID-19 (BILL) Positive A COVID-19 Clin Com See Note 06/06/23 05:14 MCV MCH MCHC RDW Plt Count MPV Immature Gran % (Auto) Neut % (Auto) Lymph % (Auto) [place] % (Auto) Eos % (Auto) Baso % (Auto) Lymph # (Auto) [place] # (Auto) Eos # (Auto) Baso # (Auto) Abs Immat Gran (auto) Absolute Neuts (auto) Absolute Nucleated RBC Nucleated RBC % (auto) VBG pH VBG pCO2 VBG pO2 VBG HCO3 VBG O2 Saturation VBG Base Excess Anion Gap Estim Creat Clear Calc Estimated GFR Random Glucose Lactic Acid Calcium Total Bilirubin Direct Bilirubin AST ALT Alkaline Phosphatase Ammonia Total Protein Albumin Lipase Procalcitonin 0.02 Urine Color Urine Appearance Urine pH Ur Specific [place] Urine Protein Urine Glucose (UA) Urine Ketones Urine Blood Urine Nitrite Ur Leukocyte Esterase Urine Opiates Screen Urine Fentanyl Screen Ur Barbiturates Screen Ur Phencyclidine Scrn Ur Amphetamines Screen U Benzodiazepines Scrn Urine Cocaine Screen U Marijuana (THC) Screen Ethyl Alcohol COVID-19 (BILL) COVID-19 Clin Com Microbiology Microbiology Results: Microbiology 06/05/23 13:40 Blood Culture - Final Blood - Venous Assessment and Plan (1) Pneumonia: Status: Acute (2) Hypoxia: Status: Acute (3) COVID-19: Status: Acute Plan 83-year-old female patient with no significant past medical history recently seen at [place] ED on May 27 due to symptoms of generalized weakness poor by mouth intake and was diagnosed to have COVID-19 infection and UTI patient was discharged from ED on by mouth Ceftin for 1 week, and return back to ED for evaluation of persistent weakness , poor by mouth intake and nausea, CT head showed no acute abnormality chest x-ray showed multifocal bilateral pneumonia consistent with COVID 19 infection patient will be admitted to medical floor in isolation with a diagnosis of hypoxia with COVID-19 infection. Acute hypoxic respiratory failure due to pneumonia with COVID-19 infection/superadded bacterial infection. Admitted to isolation placed on IV Decadron, cough medication, vitamin-C, supportive care s/p IV fluids, IV vancomycin and IV Zosyn x1 in ED on IV doxycycline day 08/09 for possible secondary pneumonia, chest x-ray findings most likely consistent with COVID-19 pneumonia, procalcitonin 0.02 level Wean oxygen as tolerated patient not on home oxygen Recent episode of UTI finished course of antibiotic urine culture grew Proteus mirabilis Generalized weakness/decreased by mouth intake and nausea most consistent with COVID-19 infection Nausea resolved tolerating diet less tiredness encourage out of bed to chair and ambulation Patient lives alone at home ambulates without assistive device, family visits frequently Supportive care, rest, antiemetics and analgesics DVT prophylaxis Lovenox subQ Code status full code discussed with patient's son Frde Selby In my clinical judgment patient need continued inpatient hospitalization for management of hypoxia related to COVID-19 infection. Quality Stroke Does the patient have a stroke diagnosis?: No VTE Prior VTE?: No VTE Risk Level:: Medical - moderate - high VTE Device Contraindication: Treatment Not Indicated VTE Drug Contraindication: N/A - Med Ordered
--- NOTE | 2023-06-06 15:50 | PC.NURSE ---
Patient son came to visit, refused when asked to wear mask, patient on precautions for covid-19
[2023-06-06] MEDS: Enoxaparin Sodium 40 MG/0.4 ML SYRINGE SUBCUT (16:53)
[2023-06-06] MEDS: Melatonin 3 MG TABLET PO (19:48)
[2023-06-07] VITALS (9 sets, daily range): BP systolic 128–179; BP diastolic 62–98; PULSE 50–78; RESP 17–19; TEMP 36–36.8; O2SAT 92–97
[2023-06-07] MEDS: 0.9 % Sodium Chloride Flush 3 ML SYRINGE IVFLUSH ×2 (07:27→17:15)
[2023-06-07] MEDS: dexAMETHasone sod phosphate 4 MG/ML VIAL 6 MG IVPUSH (07:27)
[2023-06-07] MEDS: Multivitamin TABLET 1 TAB PO (07:27)
[2023-06-07] MEDS: guaiFENesin DM 100/10/5 ML 5 ML SYRUP 10 ML PO ×3 (07:27→20:56)
[2023-06-07] MEDS: Ascorbic Acid 500 MG TABLET PO (07:27)
[2023-06-07] MEDS: Doxycycline Hyclate 100 MG in 0.9 % Sodium Chloride 250 ML 166.67 MG IV (07:28)
--- NOTE | 2023-06-07 08:14 | HE.PHANOTE ---
DOXYCYCLINE IV TO PO OK TO CHANGE IV DOXYCYCLINE TO PO DOSING PER DR HOPSON. ORDER ADJUSTED.
--- NOTE | 2023-06-07 14:30 | MHC.CM.PN ---
EMR reviewed and per MD rounds, pt may be cleared for D/C today. PT is recommending [facility] for pt. This CM spoke with pt who is agreeable to go to acute rehab, referrals [facility] to [facility]. CM will continue to follow.
--- NOTE | 2023-06-07 14:33 | MHC.CM.PN ---
Addendum entered by Erin Cooper 06/07/23 15:50: [facility] offered pt a bed for tomorrow and pt accepted bed offer. Hospitalist aware, and transport pre-booked with [facility] for 11am tomorrow 06/08. Original Note: EMR reviewed and per MD rounds, pt may be cleared for D/C today. PT is recommending [facility] vs [facility] for pt. This CM spoke with pt who is agreeable to go to acute rehab or STR, referrals placed to [facility] and [facility]. Pt had no preference for STR, referrals placed in the [place] area. CM will continue to follow.
--- NOTE | 2023-06-07 16:58 | HO.PM.IMPN ---
Subjective Subjective Date of Service: 06/07/23 Interval History: Doing well overall. Sats stable at 3 liters/minutes Review of Systems Denies chest pain Denies shortness of breath Denies nausea vomiting diarrhea Denies fever chills Physical Exam Vital Signs: Vital Signs: Last Vital Signs Temp 98.2 F 06/07/23 15:16 Pulse 61 06/07/23 15:16 Resp 18 06/07/23 15:16 BP 150/77 H 06/07/23 15:16 Pulse Ox 92 06/07/23 15:16 O2 Del Method Nasal Cannula 06/07/23 15:16 O2 Flow Rate 3 06/07/23 15:16 Oxygen Flow Rate 3 06/05/23 13:17 BMI result Body Mass Index 26.6 Const: Other: Awake alert no acute distress Resp: Other: Clear to auscultation bilaterally no rales rhonchi or wheezes Cardio: Other: No S4; positive S1-S2; no S3 murmurs rubs or gallops GI: Other: Soft nontender nondistended normoactive bowel sounds Extrem: Other: No edema bilaterally Objective Data Active Medications Acetaminophen (Acetaminophen 325 Mg Tablet) 650 mg PO Q6H PRN PRN Reason: Pain, Mild (Pain Scale 1-3) Ascorbic Acid (Ascorbic Acid 500 Mg Tablet) 500 mg PO DAILY [facility] Last Admin: 06/07/23 07:27 Dose: 500 mg Documented By: TEE Calcium Carbonate (Calcium Carbonate 500 Mg Tablet) 500 mg PO DAILY [facility] Last Admin: 06/07/23 07:27 Dose: 500 mg Documented By: TEE Dexamethasone Sodium Phosphate (Dexamethasone Sod Phosphate 4 Mg/Ml Vial) 6 mg IVPUSH DAILY [facility] Last Admin: 06/07/23 07:27 Dose: 6 mg Documented By: TEE Doxycycline Monohydrate (Doxycycline Monohydrate 100 Mg Capsule) 100 mg PO Q12H [facility] Enoxaparin Sodium (Enoxaparin Sodium 40 Mg/0.4 Ml Syringe) 40 mg SUBCUT Q24H [facility] Last Admin: 06/06/23 16:53 Dose: 40 mg Documented By: MEAGHAN Guaifenesin/Dextromethorphan (Guaifenesin Dm 100/10/5 Ml 5 Ml Syrup) 10 ml PO TID [facility] Last Admin: 06/07/23 07:27 Dose: 10 ml Documented By: TEE Magnesium Hydroxide (Milk Of Magnesia 30 Ml Oral.Susp) 30 ml PO DAILY PRN PRN Reason: Constipation Melatonin (Melatonin 3 Mg Tablet) 3 mg PO BEDTIME PRN PRN Reason: Insomnia Last Admin: 06/06/23 19:48 Dose: 3 mg Documented By: JR Multivitamins/Vitamin C (Multivitamin Tablet) 1 tab PO DAILY [facility] Last Admin: 06/07/23 07:27 Dose: 1 tab Documented By: TEE Ondansetron HCl (Ondansetron Hcl 4 Mg/2 Ml Vial) 4 mg IVPUSH Q8H PRN PRN Reason: Nausea and Vomiting Sodium Chloride (0.9 % Sodium Chloride Flush 3 Ml Syringe) 3 ml IVFLUSH QSHIFT [facility] Last Admin: 06/07/23 07:27 Dose: 3 ml Documented By: TEE Labs 06/05/23 15:00 06/05/23 15:00 Microbiology Microbiology Results: Microbiology 06/05/23 15:00 Blood Culture - Preliminary Blood - Venous No growth after 24 hours. Assessment and Plan (1) Pneumonia: Status: Acute (2) Hypoxia: Status: Acute Plan 83-year-old female patient with no significant past medical history recently seen at [facility] on May 27 due to symptoms of generalized weakness poor by mouth intake and was diagnosed to have COVID-19 infection and UTI patient was discharged from ED on by mouth Ceftin for 1 week, and return back to ED for evaluation of persistent weakness , poor by mouth intake and nausea, CT head showed no acute abnormality chest x-ray showed multifocal bilateral pneumonia consistent with COVID 19 infection patient will be admitted to medical floor in isolation with a diagnosis of hypoxia with COVID-19 infection. 1.Acute hypoxic respiratory failure due to pneumonia with COVID-19 -continue doxycycline will switch to p.o. upon discharge -continue dexamethasone daily; p.o. upon discharge -seen by PT who recommended short-term rehab.... Discharge plan aware Lovenox Full code discussed In my clinical judgment patient need continued inpatient hospitalization for management of hypoxia related to COVID-19 infection. Quality Stroke Does the patient have a stroke diagnosis?: No VTE Prior VTE?: No VTE Risk Level:: Medical - moderate - high VTE Device Contraindication: Treatment Not Indicated VTE Drug Contraindication: N/A - Med Ordered
[2023-06-07] MEDS: Enoxaparin Sodium 40 MG/0.4 ML SYRINGE SUBCUT (17:15)
[2023-06-07] MEDS: Doxycycline Monohydrate 100 MG CAPSULE PO (20:57)
[2023-06-08 03:47] VITALS: BP 178/84; PULSE 64; RESP 17; TEMP 36.4; O2SAT 95
[2023-06-08 07:11] VITALS: BP 176/93; PULSE 58; RESP 18; TEMP 36.5; O2SAT 96
[2023-06-08] MEDS: 0.9 % Sodium Chloride Flush 3 ML SYRINGE IVFLUSH (08:13)
[2023-06-08] MEDS: Doxycycline Monohydrate 100 MG CAPSULE PO (08:13)
[2023-06-08] MEDS: Ascorbic Acid 500 MG TABLET PO (08:13)
[2023-06-08] MEDS: Multivitamin TABLET 1 TAB PO (08:13)
[2023-06-08] MEDS: dexAMETHasone sod phosphate 4 MG/ML VIAL 6 MG IVPUSH (08:13)
[2023-06-08] MEDS: guaiFENesin DM 100/10/5 ML 5 ML SYRUP 10 ML PO (08:13)
--- NOTE | 2023-06-08 08:33 | MHC.CM.PN ---
Addendum entered by Madisyn Bauer RN 06/08/23 09:04: PT'S DTR DEZ AND SON GEOVANNA CONTACTED [phone] AT 8:57AM AND AGREEABLE TO PLAN Original Note: PT MEDICALLY CLEARED FOR D/C TO [facility] AT 11AM W/[facility] FOR BLS TRANSPORT
--- NOTE | 2023-06-08 09:38 | P.DS_ITS ---
DS: Providers Provider Date of Service: 06/08/23 Date of admission: 06/05/23 17:51 Date of discharge: 06/08/23 Primary care physician: Kenzie Vance MD DS: Diagnosis Discharge Diagnosis (1) Pneumonia: Status: Acute (2) Hypoxia: Status: Acute DS: Summary Hospital Course Hospital Course: 83-year-old female patient with no significant past medical history was seen at [facility] 05 27 23 due to feeling sick for 1 week, with weakness nausea decreased by mouth intake patient was diagnosed to have COVID-19 infection her urinalysis was positive she had normal WBC count, normal chest x-ray had no hypo geraldine therefore patient was discharged home on by mouth Ceftin 250 mg 1 tablet twice daily for 7 days, patient presented again to [facility] today due to generalized weakness ,decreased by mouth intake, and nausea, patient denies fevers, chills, no lightheadedness, no dizziness, no headaches, denies urinary symptoms ,of urgency or frequency, no URI symptoms, no cough, complain of mild shortness of breath, due to above symptoms EMS was called and patient was noted to have hypoxia finger oximetry in 80s therefore patient was placed on oxygen and was brought into the ER in ED CT head showed no acute abnormality, urinalysis was unremarkable, CBC benign, normal electrolytes and renal function, repeat chest x-ray showed bilateral multi focal pneumonia, urine culture from 05/24 showed Proteus mirabilis sensitive to ceftriaxone, at present patient is awake alert answering question appropriately, and ED patient treated with 1 L of IV fluids, IV vancomycin and IV Zosyn and now being admitted to [facility] due to acute hypoxic respiratory failure likely due to COVID-19 infection. Hospital [facility] Patient was admitted to telemetry and switch to IV doxycycline. IV Decadron was added 6 mg daily. Patient continued to improve; discussed with ID. At this time from a COVID standpoint patient can be discharged on oral doxycycline and complete a week taper of dexamethasone. Her O2 can be titrated the receiving facility. At this point time she is medically acceptable for discharge to rehab Time Attestation Discharge coordination time: Greater than 30 minutes Quality: Safe Use of Opioids Does Pt have an Active Cancer Diagnosis on the Problem List?: No Quality: Stroke Does the patient have a stroke diagnosis?: No Physical Exam Vital Signs: Vital Signs: Last Vital Signs Temp 97.7 F 06/08/23 07:11 Pulse 58 06/08/23 07:11 Resp 18 06/08/23 07:11 BP 176/93 H 06/08/23 07:11 Pulse Ox 96 06/08/23 07:11 O2 Del Method Nasal Cannula 06/08/23 07:11 O2 Flow Rate 3 06/08/23 07:11 Oxygen Flow Rate 3 06/05/23 13:17 BMI result Body Mass Index 26.6 Const: Other: Awake alert no acute distress Resp: Other: Clear to auscultation bilaterally no rales rhonchi or wheezes Cardio: Other: No S4; positive S1-S2; no S3 murmurs rubs or gallops GI: Other: Soft nontender nondistended normoactive bowel sounds Extrem: Other: No edema bilaterally DS: Data Data Completed and Pending Labs on day of discharge: Preliminary micro results at discharge 06/05/23 15:00 Blood Culture - Preliminary Blood - Venous No growth after 48 hours. Discharge Plan Discharge Anticipated Discharge Date/Time: 06/08/23 09:34 Patient Disposition: Xfer SNF Discharge Diagnosis: Atypical pneumonia Referrals: [facility] [Outside] - 1 Day (SHORT TERM REHAB) Kenzie Vance MD [Primary Care Provider] - 1 Week Discharge Medications: New dextromethorphan-guaifenesin 10-100 mg/5 mL Syrup 10 ml PO TID Qty: 180 0RF ascorbic acid (vitamin C) [Vitamin C] 500 mg Tablet 500 mg PO DAILY Qty: 30 0RF doxycycline monohydrate 100 mg Capsule 100 mg PO Q12H Qty: 14 0RF dexamethasone 6 mg tablet 6 mg PO DAILY Qty: 7 0RF Continued benzonatate 200 mg capsule 200 mg PO TID PRN (Reason: cough) Qty: 30 0RF multivitamin Tablet 1 tab PO DAILY calcium carbonate 500 mg calcium (1,250 mg) Tablet 500 mg PO DAILY Discontinued cefuroxime axetil 250 mg tablet 250 mg PO BID 7 Days Qty: 14 0RF Discharge Orders: Discharge Order (Routine); Ordered 06/08/23 Ordered By: Yaron Michelle Diet: Advance to usual diet Activity on Discharge: As tolerated Stand Alone Forms: Patient Portal Discharge page Care Plan Goals: Continue all meds as ordered. Complete course of doxycycline and Decadron as ordered Health Concerns: O2 can be titrated at receiving facility Plan of Treatment: As per receiving facility Assessment: See discharge summary
== END 2023-06-08 11:00 | disposition skilled nursing facility (03) | DRG 177 ==
LOC: HO.ED 16:42 → HO.EDOVER 18:13 → HO.IMC 06-06 08:50
PROVIDERS: Admitting Provider Hospitalist; Emergency Provider Student in an Organized Health Care Education/Training Program; PCP Internal Medicine; Visit Provider Hospitalist
DX: U07.1 COVID-19 (principal); J12.82 Pneumonia due to coronavirus disease 2019; J96.01 Acute respiratory failure with hypoxia; J15.9 Unspecified bacterial pneumonia; Z79.899 Other long term (current) drug therapy
CPT/HCPCS: 36415; 70450; 71046; 80048; 80076; 80307; 81003; 82140; 82803; 83605; 83690; 84145; 84484; 85025; 87040; 87635; 93005; 97162; 99285; J1100; J1650; J2543; J3371

== ENCOUNTER → 2023-06-05 17:51 | Outpatient (BNV) | payer MEDICARE, OTHER, SELFPAY | PROVIDERS: Admitting Provider Hospitalist; Emergency Provider Student in an Organized Health Care Education/Training Program; Visit Provider Hospitalist | DX: J96.01 Acute respiratory failure with hypoxia (principal); J18.9 Pneumonia, unspecified organism | CPT/HCPCS: 99223; 99233; 99239 ==

== ENCOUNTER 2025-07-10 17:35 | Inpatient (IN) | payer MEDICARE, SELFPAY ==
--- NOTE | ~2025-07-10 | CT_ITS ---
CLINICAL HISTORY: confusion CT head without contrast Comparison: CT/TN/SR - CT HEAD WITHOUT IV CONTRAST - 06/05/23 14:11 EDT Findings: BRAIN: No acute infarct, hemorrhage, or mass effect. Scattered periventricular/deep white matter hypodensities, nonspecific, however may represent chronic microvascular ischemic disease. CSF SPACES: No hydrocephalus or effacement of basal cisterns. SKULL: No calvarial fracture. SINUSES: No significant mucosal thickening or effusion on limited views. ORBITS: Limited views are unremarkable. OTHER: Negative. IMPRESSION: 1. No acute intracranial findings. This document has been electronically signed by: Stefanie Correa MD on 07/10/2025 19:20:25
--- NOTE | ~2025-07-10 | XR_ITS ---
CLINICAL HISTORY: weakness, confusion 2 view chest x-ray Comparison: CR/SR - XR CHEST 2 VIEWS - 06/05/23 14:05 EDT Findings: Small right pleural effusion. Bibasilar atelectasis. Stable cardiac silhouette. No acute osseous abnormality. Healed fracture of the right humeral head. IMPRESSION: 1. Small right pleural effusion with bibasilar atelectasis. This document has been electronically signed by: Stefanie Correa MD on 07/10/2025 18:57:17
[2025-07-10 17:43] VITALS: BP 140/82; PULSE 93; RESP 18; TEMP 36.6; O2SAT 98; BMI 28.3
--- NOTE | 2025-07-10 17:46 | ED_ITS ---
HPI - General Adult General Chief complaint: Altered Mental Status Stated complaint: neurological issues ? Time Seen by Provider: 07/10/25 22:39 History of Present Illness HPI narrative: 85-year-old female with no significant past medical history presents with three days of increasing lethargy, weakness, fatigue, and new urinary incontinence. She reports feeling ?better now? but notes poor oral intake and decreased fluid consumption over the same period. She denies nausea, vomiting, diarrhea, cough, chest pain, abdominal pain, dysuria, or fever, though she ?felt feverish? at onset on Saturday. No runny nose. Appetite has been poor for the last three days. She lives alone and has not been around anyone sick. She attended [facility] at her son?s home without ill contacts. She reports a new mildly pruritic facial/scalp rash noted yesterday after washing her hair; denies new products or similar prior rashes. Related Data Home Medications ?Medication ?Instructions ?Recorded ?Confirmed calcium carbonate 500 mg PO DAILY 06/05/2308/27 multivitamin 1 tab PO DAILY 06/05/2308/27 Previous Rx's ?Medication ?Instructions ?Recorded benzonatate 200 mg capsule 200 mg PO TID PRN cough #30 caps 05/27/23 ascorbic acid (vitamin C) 500 mg 500 mg PO DAILY #30 t abs 06/08/23 tablet (Vitamin C) dexamethasone 6 mg tablet 6 mg PO DAILY #7 tabs dextromethorphan-guaifenesin 10 10 ml PO TID #180 mL 1 08/08/22 mg-100 mg/5 mL oral syrup doxycycline monohydrate 100 mg 100 mg PO Q12H #14 caps 06/08/23 capsule Allergies Allergy/AdvReac Type Severity Reaction Status Date / Time No Known Allergies Allergy Verified 07/10/25 17:47 Review of Systems 2 Review of Systems: as per HPI, full review of systems performed and negative but for the above mentioned pertinent positives and negatives. [facility] Social History Social History Household Members: None Housing: House Do you presently have visiting nurse or other home services: No Patient Tobacco Use Status: Never used Tobacco Advance Directives: No Advance Directives Information Provided: No Do you have a plan to hurt others: No Plan service: No Physical Exam ED Exam Exam: GENERAL: Chronically ill-appearing, conversant, no acute distress. SKIN: Normal skin color for ethnicity, warm, dry, no rashes noted. HEENT: Normocephalic, atraumatic, no stridor, posterior oropharynx nonerythematous, EOMI. NECK: Soft, supple, full ROM, midline structures nontender, no step-offs, no deformities, no lymphadenopathy. CHEST: Heart regular rate and rhythm, no murmurs, symmetric chest rise and fall. PULMONARY: Clear to auscultation bilaterally, diminished at the bases R>L, no labored breathing, no wheezes/rhales/ rhonchi. ABDOMINAL: Soft, nondistended, nontender, positive bowel sounds in all quadrants. : Deferred. MUSCULOSKELETAL: Normal tone, full range of motion, no deformities, no peripheral edema. NEURO: Alert and oriented to person, CN II through XII intact, no focal neurologic deficits. PSYCHIATRIC: Flat affect, fluid speech, appropriate demeanor. Vital Signs: Vital Signs - 24 hr 07/10/25 17:43 07/10/25 21:32 07/10/25 23:35 Temperature 98 F 98.1 F 98.8 F Pulse Rate 93 75 79 Respiratory Rate 18 19 19 Blood Pressure 140/82 H 179/88 H 175/101 H Pulse Oximetry 98 98 95 Oxygen Delivery Method Room Air Room Air Room Air 07/10/25 23:42 Temperature Pulse Rate 76 Respiratory Rate 19 Blood Pressure 168/90 H Pulse Oximetry 96 Oxygen Delivery Method Room Air BMI result Body Mass Index 28.3 Course Course Course Narrative: This is a Rapid Medical Examination (RME) performed by Gabi Del Castillo PA-C in triage. Full HPI, ROS, assessment and treatment plan per primary provider in the Main ED. Hx: 85 yo F here w/ daughter in law for eval of confusion and generalized weakness x3 days. Reports feeling fatigued, [id number] has noticed repetitive questioning, confused as to which son is visiting her. Also endorsing urinary incontinence. Patient denies any dysuria. also has noticed red lewis to patients face x today. denies falls/head strike. not currently on any medications. PE/vitals: NIH 0. exam is nonfocal. Plan: r/o infection - labs, UA, cxr, viral swabs, CT head Medications Administered Discontinued Medications Generic Name Dose Route Start Last Admin Trade Name Charlesq PRN Reason Stop Dose Admin Lactated Ringer's 1,000 mls @ 999 mls/hr 07/10/25 22:43 07/11/25 00:15 Lr IV 07/10/25 23:43 Infused .Q1H1M ONE Infusion Medical Decision Making Medical Decision Making MDM Narrative: 85-year-old female with 3-day history of lethargy, poor oral intake, new urinary incontinence, and mild confusion. Labs largely unremarkable except mild dehydration. CXR shows new right lung fluid concerning for possible pneumonia. Urinary tract infection also under consideration given incontinence and potential infection-related confusion; UA/culture pending. New pruritic facial/scalp rash likely viral or allergic/dermatologic etiology. Differential diagnosis includes anemia, electrolyte abnormality, infection, rhabdomyolysis/myositis, CVA, medication side effects, deconditioning, dehydration, among many others. A broad-based workup was initiated based on the patient's history and physical examination. They were watched closely on technology training associate with vital signs that were monitored during the duration of their stay. There are no signs of focal neurological deficit or weakness on exam. Problem #1: Possible Right-sided Pneumonia Assessment: New right lung fluid on CXR without clear infectious markers; patient afebrile and without cough but advanced age lowers immune response threshold. Prior CXR in 2022 was normal, making current finding acute. Plan: * Administer IV fluids in ED, antibiotics. * Reassess following hydration; monitor vitals and respiratory status. * Iinitiate pneumonia-directed antibiotic therapy (specific agent to be chosen once UA results available). PORT score 124, making her high risk for 30 day mortality, will admit for further care and evaluation. Problem #2: Possible Urinary Tract Infection / Dehydration Assessment: New urinary incontinence, mild confusion, and fatigue raise concern for UTI. Mildly elevated BUN/Cr ratio suggests dehydration. Plan: * Collect urine for UA and culture. * Begin IV fluid hydration to correct volume depletion and facilitate urine sample. * If UA positive (?dirty urine?), select UTI-appropriate antibiotic per culture/sensitivity. Problem #3: Pruritic Facial/Scalp Rash Assessment: New onset yesterday; erythematous ?floshy? rash crossing midline, mildly pruritic; etiology possibly viral. Plan: * Will provide something to help with itching as discussed with patient. * Monitor for evolution; reassess if rash worsens or additional systemic symptoms develop. Disposition admit to hospitalist. Differential Diagnosis Differential Diagnoses: The differential diagnosis associated with the presentation includes (as above) Admission/Observation Consideration of admission/observation: Escalation of care including admission/observation considered Consult Healthcare Provider Management of the patient was discussed with: Hospitalist Lab Data MDM Lab Attestation statement: I reviewed the patient's lab results. 07/10/25 18:13 07/10/25 18:13 Labs: Lab Results 07/10/25 07/10/25 07/11/25 Range/Units 18:13 23:13 00:47 WBC 6.0 (4.8-10.8) X10*3/uL RBC 4.92 (4.20-5.50) X10*6/uL Hgb 14.8 (12.0-16.0) g/dl Hct 45.3 (37.0-47.0) % MCV 92.1 (80.0-98.0) fL MCH 30.1 (27.0-33.0) pg MCHC 32.7 (31.0-35.0) g/dl RDW 13.3 (11.0-16.0) % Plt Count 139 L D (160-400) X10*3/uL MPV 10.7 (9.4-12.3) fL Immature Gran % (Auto) 0.3 (0.0-0.4) % Neut % (Auto) 71.3 (45-73) % Lymph % (Auto) 14.2 L (20-40) % Schuyler % (Auto) 12.7 H (2-11) % Eos % (Auto) 0.7 (0-4) % Baso % (Auto) 0.8 (0-2) % Lymph # (Auto) 0.9 L (1.2-4.9) X10*3/uL [place]yler # (Auto) 0.8 (0.1-1.2) X10*3/uL Eos # (Auto) 0.0 (0.0-0.4) X10*3/uL Baso # (Auto) 0.1 (0.0-0.2) X10*3/uL Abs Immat Gran (auto) 0.02 (0.00-0.03) X10*3/uL Absolute Neuts (auto) 4.3 (2.0-8.3) x10*3/uL Absolute Nucleated RBC 0.000 (0.0-0.012) X10*3/uL Nucleated RBC % (auto) 0.0 (0.0-0.2) /100WBC Smear Tech's Comments VERIFIED Sodium 144 (135-145) mmol/L Potassium 3.2 L (3.3-5.1) mmol/L Chloride 109 H (96-108) mmol/L Carbon Dioxide 26 (22-29) mmol/L Anion Gap 12 (12-20) BUN 30 H (9-16) mg/dL Creatinine 0.76 (0.5-1.4) mg/dL Estim Creat Clear Calc 49.5 Estimated GFR > 60 Random Glucose 129 H (60-115) mg/dL Lactic Acid 1.1 (0.5-2.0) mmol/L Calcium 9.3 D (8.4-10.2) mg/dL Magnesium 2.4 (1.6-2.6) mg/dL Total Bilirubin 0.8 (0.0-1.0) mg/dL AST 26 (5-31) U/L ALT 19 (0-31) U/L Alkaline Phosphatase 57 (39-117) U/L Total Protein 7.3 (6.5-8.0) g/dL Albumin 4.0 (3.5-5.0) g/dL Lipase 19 (8-78) U/L TSH 1.48 (0.32-4.0) uIU/mL Urine Color Yellow Urine Appearance Clear Urine pH 6.0 (5.0-9.0) Ur Specific [place] 1.015 (1.005-1.025) Urine Protein Negative (Neg-Trace) mg/dL Urine Glucose (UA) Negative (Negative) mg/dL Urine Ketones Trace (Negative) mg/dL Urine Blood Trace H (Negative) Urine Nitrite Positive H (Negative) Ur Leukocyte Esterase Negative (Negative) Urine RBC 0-2 (0-2) /HPF Urine WBC 0-5 (0-5) /HPF Ur Squamous Epith Cells 0-2 (0-2) /HPF Urine Bacteria 4+ (None Seen) Hyaline Casts 0-2 (0-2) /LPF Influenza Type A (PCR) NEGATIVE (Negative) Influenza Type B (PCR) NEGATIVE (Negative) RSV RNA Qual (PCR) NEGATIVE (Negative) SARS-CoV-2 RNA (RT-PCR) NEGATIVE (Negative) Independent Interpretation I performed an independent interpretation of an: EKG and Plain X-Ray Interpretation: My independent interpretation of the ECG reveals normal sinus rhythm with rate of 85, leftward axis, normal intervals, no ST elevations or depressions to suggest ischemic changes, relatively unchanged from previous on 06/05/23. My independent interpretation of the chest x-ray reveals right-sided pleural effusion but no consolidations, pulmonary edema, pneumothorax, obvious bony abnormalities. Radiology Impression Discussion of test interpretation with radiology: I have reviewed the radiologist's reading. Independent Historian Clinical information obtained from an independent historian. History obtained from or confirmed by: Other ([id number]) External Record Review External record reviewed: Inpatient record Prescription Management I considered prescription management with: Antibiotic Discharge Plan Discharge Patient Disposition: Admitted As Inpatient Print Language: Wolof
--- NOTE | 2025-07-10 17:48 | ECG_ITS ---
Test Reason : WEAKNESS Blood Pressure : */* mmHG Vent. Rate : 85 BPM Atrial Rate : 85 BPM P-R Int : 136 ms QRS Dur : 80 ms QT Int : 364 ms P-R-T Axes : 77 -7 28 degrees QTcB Int : 433 ms Normal sinus rhythm Possible Anterior infarct , age undetermined Abnormal ECG When compared with ECG of 05-Jun-2023 15:05, No significant change was found Referred By: Fidelia Del Castillo Electronically Signed By: ANDREW HOGAN
[2025-07-10 18:31] LABS: Hematocrit 45.3 % (37.0-47.0); Hemoglobin 14.8 g/dl (12.0-16.0); Imm Gran Abs Auto 0.02 X10*3/uL (0.00-0.03); Imm Gran Pct Auto 0.3 % (0.0-0.4); Lymphocytes Absolute Auto 0.9 X10*3/uL (1.2-4.9); MANUAL DIFF FLAG SCAN; Mean Corpuscular HGB Conc 32.7 g/dl (31.0-35.0); Mean Corpuscular Hemoglobin 30.1 pg (27.0-33.0); Mean Corpuscular Volume 92.1 fL (80.0-98.0); NRBC Abs Auto 0.000 X10*3/uL (0.0-0.012); NRBC Pct Auto 0.0 /100WBC (0.0-0.2); PLT CLUMP 1; Red Blood Count 4.92 X10*6/uL (4.20-5.50); SCAN SMEAR FLAG 1
[2025-07-10 18:47] LABS: White Blood Count 6.0 X10*3/uL (4.8-10.8)
[2025-07-10 18:48] LABS: Platelet Count 139 X10*3/uL (160-400)
[2025-07-10 18:54] LABS: Alanine Aminotransferase 19 U/L (0-31); Albumin Level 4.0 g/dL (3.5-5.0); Alkaline Phosphatase 57 U/L (39-117); Anion Gap 12 (12-20); Aspartate Amino Transferase 26 U/L (5-31); Blood Urea Nitrogen 30 mg/dL (9-16); Calcium 9.3 mg/dL (8.4-10.2); Carbon Dioxide 26 mmol/L (22-29); Chloride 109 mmol/L (96-108); Creatinine Clr Calc Pharmacy 49.5; Estimated Glomerular Filt Rate > 60; Lipase 19 U/L (8-78); Magnesium 2.4 mg/dL (1.6-2.6); Potassium 3.2 mmol/L (3.3-5.1); Sodium 144 mmol/L (135-145); Total Protein 7.3 g/dL (6.5-8.0)
[2025-07-10 19:05] LABS: Resp Syncy Virus RNA Qual PCR NEGATIVE (Negative); SARS COV2 PCR INHOUSE NEGATIVE (Negative)
[2025-07-10 21:32] VITALS: BP 179/88; PULSE 75; RESP 19; TEMP 36.7; O2SAT 98
[2025-07-10] MEDS: Lactated Ringers 1,000 ML 999 ML IV (23:10)
[2025-07-10 23:35] VITALS: BP 175/101; PULSE 79; RESP 19; TEMP 37.1; O2SAT 95
[2025-07-10 23:42] VITALS: BP 168/90; PULSE 76; RESP 19; O2SAT 96
--- NOTE | 2025-07-10 23:43 | PC.NURSE ---
This RN assumed pt care @ 2378. Pt a&ox4, no signs of distress. Pt denies pain at this time Pts vitals retaken, pt denies hx of htn Pt advised UA needed. Plan of care ongoing.
--- NOTE | 2025-07-11 00:51 | PC.NURSE ---
Pt assisted to restroom and back into bed for comfort UA collected and sent Plan of care ongoing.
[2025-07-11 00:54] LABS: Appearance Urine Clear; Glucose Urine UA Negative (Negative); PH 6.0 (5.0-9.0); Specific Gravity - Urine 1.015 (1.005-1.025); UMIC TRIGGER UACC YES
[2025-07-11 00:56] LABS: UACC Culture Trigger YES
--- NOTE | 2025-07-11 01:11 | P.HPHOSP_ITS ---
History of Present Illness Date of Service: 07/11/25 Chief Complaint: Generalized weakness 85-year-old female with no significant past medical history, lives alone, independent of ADLs; presented to the hospital with a chief complaint of generalized weakness. Per family patient has been generally weak and tired over the past couple days. Has been more sleepy and lethargic. Patient denies any fever chills cough or sputum production. Denies any GI or symptoms. Denies any falls or injury. Denies any chest pain or palpitations. Review of all other systems is negative except mentioned above Chest x-ray showed small right pleural effusion and basilar atelectasis; urinalysis showed nitrites; given ceftriaxone. ER course: Per ER team, patient's exam was nonfocal; CT head showed acute findings; [facility] Social History Household Members: None Housing: House Do you presently have visiting nurse or other home services: No Patient Tobacco Use Status: Never used Tobacco Advance Directives: No Advance Directives Information Provided: No Do you have a plan to hurt others: No Plan service: No Meds Allergies Allergy/AdvReac Type Severity Reaction Status Date / Time No Known Allergies Allergy Verified 07/10/25 17:47 Active Medications: Current Medications Ceftriaxone Sodium 1 gm/ (Sodium Chloride) 50 mls @ 100 mls/hr IV ONCE ONE Stop: 07/11/25 01:32 Doxycycline Hyclate 100 mg/ (Sodium Chloride) 250 mls @ 166.67 mls/hr IV ONCE ONE Stop: 07/11/25 02:32 Home Medications ?Medication ?Instructions ?Recorded ?Confirmed ?Last Taken ?Type calcium carbonate 500 mg PO DAILY 06/05/2308/27 Unknown History multivitamin 1 tab PO DAILY 06/05/2308/27 Unknown History Physical Exam 2 Vital Signs and Narrative: Vital Signs: Last Vital Signs Temp 98.8 F 07/10/25 23:35 Pulse 76 07/10/25 23:42 Resp 19 07/10/25 23:42 BP 168/90 H 07/10/25 23:42 Pulse Ox 96 07/10/25 23:42 O2 Del Method Room Air 07/10/25 23:42 BMI result Body Mass Index 28.3 Gen: Appears be in no acute distress HEENT: NCAT, Moist mucosa. Pulmonary: Vesicular breath sounds, fair air entry CVS: Normal S1-S2 Abdomen: BS+, Soft, Nontender Extremities: Warm well perfused Neuro: Alert and awake. Results Labs 07/10/25 18:13 07/10/25 18:13 Labs: Laboratory Results - last 24 hr 07/10/25 07/10/25 07/11/25 18:13 23:13 00:47 MCV 92.1 MCH 30.1 MCHC 32.7 RDW 13.3 Plt Count 139 L D MPV 10.7 Immature Gran % (Auto) 0.3 Neut % (Auto) 71.3 Lymph % (Auto) 14.2 L Grand % (Auto) 12.7 H Eos % (Auto) 0.7 Baso % (Auto) 0.8 Lymph # (Auto) 0.9 L Grand # (Auto) 0.8 Eos # (Auto) 0.0 Baso # (Auto) 0.1 Abs Immat Gran (auto) 0.02 Absolute Neuts (auto) 4.3 Absolute Nucleated RBC 0.000 Nucleated RBC % (auto) 0.0 Smear Tech's Comments VERIFIED Anion Gap 12 Estim Creat Clear Calc 49.5 Estimated GFR > 60 Random Glucose 129 H Lactic Acid 1.1 Calcium 9.3 D Magnesium 2.4 Total Bilirubin 0.8 AST 26 ALT 19 Alkaline Phosphatase 57 Total Protein 7.3 Albumin 4.0 Lipase 19 TSH 1.48 Urine Color Yellow Urine Appearance Clear Urine pH 6.0 Ur Specific [place] 1.015 Urine Protein Negative Urine Glucose (UA) Negative Urine Ketones Trace Urine Blood Trace H Urine Nitrite Positive H Ur Leukocyte Esterase Negative Urine RBC 0-2 Urine WBC 0-5 Ur Squamous Epith Cells 0-2 Urine Bacteria 4+ Hyaline Casts 0-2 Influenza Type A (PCR) NEGATIVE Influenza Type B (PCR) NEGATIVE RSV RNA Qual (PCR) NEGATIVE SARS-CoV-2 RNA (RT-PCR) NEGATIVE Assessment and Plan (1) UTI (urinary tract infection): Qualifiers: Urinary tract infection type: site unspecified Hematuria presence: w ithout hematuria Qualified Code(s): N39.0 - Urinary tract infection, site not specified Status: Acute Plan 85-year-old female with no significant past medical history, lives alone, independent of ADLs; presented to the hospital with a chief complaint of generalized weakness. Admitted for following Generalized weakness: CT head negative. Exam nonfocal. Supportive care Fall precautions PT/OT when ready for discharge UTI: Continue ceftriaxone follow-up cultures Small right pleural effusion/atelectasis: Patient currently denies any pulmonary symptoms. Follow-up chest x-ray recommended in 4-6 weeks. DVT prophylaxis: Lovenox Code status: Full code Quality Stroke Does the patient have a stroke diagnosis?: No VTE Prior VTE?: No VTE Risk Level:: Medical - moderate - high VTE Device Contraindication: Treatment Not Indicated VTE Drug Contraindication: N/A - Med Ordered
--- NOTE | 2025-07-11 01:28 | PC.NURSE ---
Pt medicated per [facility] Plan of care ongoing
[2025-07-11] MEDS: Lactated Ringers 1,000 ML 75 ML IVCONT ×2 (01:34→15:38)
[2025-07-11 02:04] VITALS: BP 182/83; PULSE 72; RESP 18; TEMP 37.1; O2SAT 96
[2025-07-11 05:55] LABS: MANUAL DIFF FLAG NO
[2025-07-11 05:58] LABS: Hematocrit 41.5 % (37.0-47.0); Hemoglobin 13.7 g/dl (12.0-16.0); Imm Gran Abs Auto 0.02 X10*3/uL (0.00-0.03); Imm Gran Pct Auto 0.3 % (0.0-0.4); Lymphocytes Absolute Auto 1.1 X10*3/uL (1.2-4.9); Mean Corpuscular HGB Conc 33.0 g/dl (31.0-35.0); Mean Corpuscular Hemoglobin 30.2 pg (27.0-33.0); Mean Corpuscular Volume 91.4 fL (80.0-98.0); NRBC Abs Auto 0.000 X10*3/uL (0.0-0.012); NRBC Pct Auto 0.0 /100WBC (0.0-0.2); Platelet Count 142 X10*3/uL (160-400); Red Blood Count 4.54 X10*6/uL (4.20-5.50); White Blood Count 6.3 X10*3/uL (4.8-10.8)
[2025-07-11 05:59] VITALS: BP 176/89; PULSE 77; RESP 14; TEMP 37.2; O2SAT 96
[2025-07-11 06:13] LABS: Alanine Aminotransferase 10 U/L (0-31); Albumin Level 3.3 g/dL (3.5-5.0); Alkaline Phosphatase 50 U/L (39-117); Anion Gap 15 (12-20); Aspartate Amino Transferase 22 U/L (5-31); Blood Urea Nitrogen 21 mg/dL (9-16); Calcium 8.5 mg/dL (8.4-10.2); Carbon Dioxide 23 mmol/L (22-29); Chloride 109 mmol/L (96-108); Creatinine Clr Calc Pharmacy 68.3; Estimated Glomerular Filt Rate > 60; Potassium 3.4 mmol/L (3.3-5.1); Sodium 144 mmol/L (135-145); Total Protein 6.1 g/dL (6.5-8.0)
--- NOTE | 2025-07-11 08:30 | PHA.MEDREC ---
Addendum entered by Freda Cummins RPh 07/11/25 09:23: Reviewed by pharmacist Original Note: Pharmacy Consult ? Medication Reconciliation Pharmacy has completed the medication reconciliation. Confirmed medication list with patient. Patient states they last took supplements morning.
--- NOTE | 2025-07-11 08:44 | PM.EVENT ---
Event Note Date of Service: 07/11/25 Event Note: Female who presented to the hospital for encephalopathy, patient was found to have UTI, started on IV antibiotics. This morning patient states that she is feeling better, alert and oriented. Plan on continuing IV antibiotics and monitoring labs. Time Spent With Patient Time: Total time managing care of this patient today ____ minutes.
[2025-07-11 08:51] VITALS: BP 135/69; PULSE 76; RESP 20; TEMP 37; O2SAT 95
--- NOTE | 2025-07-11 08:58 | PC.NURSE ---
Patient reports no pain. Alert and oriented. Resting quietly, no signs of distress. Call desai placed within reach.
--- NOTE | 2025-07-11 09:08 | PC.NURSE ---
Update to Saturnino (children) via phone
--- NOTE | 2025-07-11 09:20 | PC.NURSE ---
Update to Saturnino (Son). [phone], They encourage that patient make medical decisions herself and that other children (specifically her son Fred) has impeded access in the past.
--- NOTE | 2025-07-11 10:29 | HO.NURTONUR ---
Admitted with UTI, treatment with IV Ceftriaxone. Awaiting cultures. Patient alert and oriented. Patient able to ambulate to bathroom. Head CT negative. Chest CT shows small right pleural effusion w/ bibasilar atelectasis (patient to have follow up CT in 4-6 weeks). Vital signs are within normal limits. LR running. IV 20G in the right AC.
[2025-07-11 11:32] VITALS: BMI 28.3
[2025-07-11 11:56] VITALS: BP 139/87; PULSE 76; RESP 18; TEMP 36.6; O2SAT 96
[2025-07-11 15:51] VITALS: BP 144/74; PULSE 72; RESP 18; TEMP 36.1; O2SAT 97
[2025-07-11 19:17] VITALS: BP 170/80; PULSE 70; RESP 18; TEMP 36.6; O2SAT 96
[2025-07-11] MEDS: 0.9 % Sodium Chloride Flush 3 ML SYRINGE IVFLUSH (21:58)
[2025-07-12 03:22] VITALS: BP 132/65; PULSE 74; RESP 18; TEMP 36.4
[2025-07-12] MEDS: Lactated Ringers 1,000 ML 75 ML IVCONT ×2 (06:14→19:20)
[2025-07-12 06:57] VITALS: BP 147/85; PULSE 71; RESP 18; TEMP 36.2; O2SAT 97
--- NOTE | 2025-07-12 08:33 | HO.PM.IMPN ---
Subjective Subjective Date of Service: 07/12/25 Interval History: Patient seen and examined at bedside this morning, patient more awake and oriented, blood pressure slightly elevated. Review of Systems Review of Systems: Yes all other systems are reviewed and are negative Physical Exam Exam: Exam: General: AxOx3, weak appearing Head: AT/NC ENT: Dry mucous membranes Neck: supple CVS; RRR, S1 S2 normal Lungs: Clear bilateral breath sounds, no wheezes or crackles Abd: Soft non tender, non distended Ext: No edema and no calf tenderness MSK: moving all 4 limbs Skin: No cyanosis or edema Psych: Cooperative with exam Neurology: no focal deficit Vital Signs: Vital Signs: Last Vital Signs Temp 97.2 F 07/12/25 06:57 Pulse 71 07/12/25 06:57 Resp 18 07/12/25 06:57 BP 147/85 H 07/12/25 06:57 Pulse Ox 97 07/12/25 06:57 O2 Del Method Room Air 07/12/25 06:57 BMI result Body Mass Index 28.3 Objective Data Active Medications Acetaminophen (Acetaminophen 325 Mg Tablet) 650 mg PO Q6H PRN PRN Reason: Pain, Mild 1-3,fever,headache Albuterol/Ipratropium (Albuterol/Iprat 2.5/0.5mg 3 Ml Ampul.Neb) 3 ml INHALE Q4H PRN PRN Reason: Shortness of Breath/Wheezing Ascorbic Acid (Ascorbic Acid 500 Mg Tablet) 500 mg PO DAILY [facility] Benzonatate (Benzonatate 100 Mg Capsule) 100 mg PO TID PRN PRN Reason: Cough Calcium Carbonate (Calcium Carbonate 750 Mg Tab.Chew) 750 mg PO Q4H PRN PRN Reason: Heartburn Calcium Carbonate (Calcium Carbonate 750 Mg Tab.Chew) 300 mg PO BID [facility] Last Admin: 07/11/25 21:12 Dose: Not Given Documented By: LYNETTE Non-Admin Reason: Patient Refused Enoxaparin Sodium (Enoxaparin Sodium 40 Mg/0.4 Ml Syringe) 40 mg SUBCUT Q24H [facility] Last Admin: 07/11/25 08:55 Dose: 40 mg Documented By: VALERIE Lactated Ringer's (Lr) 1,000 mls @ 75 mls/hr IVCONT .[id number] [facility] Last Admin: 07/12/25 06:14 Dose: 75 mls/hr Documented By: LYNETTE Ceftriaxone Sodium 1 gm/ (Sodium Chloride) 50 mls @ 100 mls/hr IV Q24H [facility] Last Infusion: 07/11/25 23:09 Dose: Infused Documented By: LYNETTE Influenza Virus Vaccine (Flu Vacc [id number](6mo Up)/Pf 0.5 Ml Syringe) 0.5 ml IM .ONCE ONE Stop: 07/12/25 09:01 Lisinopril (Lisinopril 5 Mg Tablet) 5 mg PO DAILY [facility]; Protocol Magnesium Hydroxide (Milk Of Magnesia 30 Ml Oral.Susp) 30 ml PO DAILY PRN PRN Reason: Constipation Melatonin (Melatonin 3 Mg Tablet) 6 mg PO BEDTIME PRN PRN Reason: Insomnia Multivitamins/Vitamin C (Multivitamin Tablet) 1 tab PO DAILY [facility] Sodium Chloride (0.9 % Sodium Chloride Flush 3 Ml Syringe) 3 ml IVFLUSH QSHIFT [facility] Last Admin: 07/11/25 21:58 Dose: 3 ml Documented By: LYNETTE Labs 07/11/25 05:36 07/11/25 05:36 Microbiology Microbiology Results: Microbiology 07/10/25 23:28 Blood Culture - Preliminary Blood - Venous No growth after 24 hours. 07/10/25 23:13 Blood Culture - Preliminary Blood - Venous No growth after 24 hours. Assessment and Plan (1) UTI (urinary tract infection): Status: Acute (2) Hypertension: Status: Acute Plan Assessment: 85-year-old female who presented to the hospital for generalized weakness, found to have UTI, started on IV ceftriaxone. Impression Urinary tract infection, Urine culture growing gram-negative rods Pre renal azotemia with UA showing hyaline casts Hypertension Generalized weakness Ambulatory dysfunction Plan UA positive for UTI, with urine culture growing Gram-negative rods, we will likely DC on p.o. antibiotics tomorrow. Continue to monitor for any signs of dysuria, increased urinary frequency Continue Lactated ringers at 75 ml/hr will initiate lisinopril 5mg P.T./OT consulted Fall precautions FEN: LR, replete as needed, regular DVT PPx: Eliquis Total time managing care of this patient today: 55 minutes. Quality Stroke Does the patient have a stroke diagnosis?: No VTE Prior VTE?: No VTE Risk Level:: Medical - moderate - high VTE Device Contraindication: Treatment Not Indicated VTE Drug Contraindication: N/A - Med Ordered
--- NOTE | 2025-07-12 11:40 | MHC.CM.PN ---
pt lives alone is indepedent has no services dc plan home n/s has a ridej
[2025-07-12] MEDS: Flu Vacc TS2025-26(6mo up)/PF 0.5 ML SYRINGE IM (12:13)
--- NOTE | 2025-07-12 13:19 | P.CDIM_ITS ---
PROVIDER RESPONSE TEXT: To clarify, the appropriate diagnosis supported by the clinical indicators: Toxic metabolic QUERY TEXT: PHYSICIAN'S DOCUMENTATION REQUEST Date of Query: 07/12/2025 01:11 PM EST Patient Name: Jaja Selby Admit Date: 07/11/2025 Dear Adarsh Pan MD, A review of the medical record indicates additional documentation may be needed. Please review below and update the documentation accordingly. 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 Please use your independent medical judgment in providing your response. THIS QUERY IS PART OF THE PERMANENT MEDICAL RECORD
[2025-07-12 16:00] VITALS: BP 161/75; PULSE 68; RESP 18; TEMP 36.2; O2SAT 96
[2025-07-12 16:06] VITALS: BP 161/75; PULSE 68; O2SAT 96
[2025-07-12 19:55] VITALS: BP 159/76; PULSE 68; RESP 15; TEMP 36.9; O2SAT 96
[2025-07-12] MEDS: 0.9 % Sodium Chloride Flush 3 ML SYRINGE IVFLUSH (21:36)
[2025-07-13] VITALS (8 sets, daily range): BP systolic 140–194; BP diastolic 68–98; PULSE 69–84; RESP 14–18; TEMP 36.3–37.2; O2SAT 94–97
--- NOTE | 2025-07-13 08:45 | PC.NURSE ---
Provider Marcus Pan notified of elevated BP in person - patient asymptomatic. Provider verbalized order for additional Lisinopril, placed order with provider next to RN.
--- NOTE | 2025-07-13 13:11 | PM.DS ---
DS: Providers Provider Date of Service: 07/13/25 Date of admission: 07/11/25 01:09 Date of discharge: 07/13/25 Primary care physician: Unknown Physician DS: Diagnosis Discharge Diagnosis (1) UTI (urinary tract infection): Status: Acute (2) Hypertension: Status: Acute DS: Summary Hospital Course Hospital Course: 85-year-old female who presented to the hospital for generalized weakness, found to have UTI, started on IV ceftriaxone. with urine culture positve for E coli and corynebacterium. transitioned to ciprofloxacin 250mg twice a day. Impression Urinary tract infection, Urine culture positive for pansensitive E coli and Corynebacterium Pre renal azotemia with UA showing hyaline casts Hypertension Generalized weakness, improved Ambulatory dysfunction, improved Plan UA reviewed, we will discharge patient on p.o. ciprofloxacin 250 mg twice a day for 5 days Continue to monitor for any signs of dysuria, increased urinary frequency will discharge on lisinopril 10 mg twice a day, advised on taking blood pressures at home, recording and following up in outpatient setting with PCP. Seen by PT, suggested no additional assistance at home. Time Attestation Discharge Coordination Time (in mins): 35 minutes Quality: Safe Use of Opioids Does Pt have an Active Cancer Diagnosis on the Problem List?: No Quality: Stroke Does the patient have a stroke diagnosis?: No Physical Exam Exam: Exam: General: AxOx3, no acute distress Head: AT/NC ENT: Dry mucous membranes Neck: supple CVS; RRR, S1 S2 normal Lungs: Clear bilateral breath sounds, no wheezes or crackles Abd: Soft non tender, non distended Ext: No edema and no calf tenderness MSK: moving all 4 limbs Skin: No cyanosis or edema Psych: Cooperative with exam Neurology: no focal deficit Vital Signs: Vital Signs: Last Vital Signs Temp 97.3 F 07/13/25 11:35 Pulse 70 07/13/25 11:35 Resp 16 07/13/25 11:35 BP 140/80 H 07/13/25 11:35 Pulse Ox 96 07/13/25 11:35 O2 Del Method Room Air 07/13/25 11:35 BMI result Body Mass Index 28.3 DS: Data Data Completed and Pending Labs on day of discharge: Preliminary micro results at discharge 07/10/25 23:28 Blood Culture - Preliminary Blood - Venous No growth after 48 hours. 07/10/25 23:13 Blood Culture - Preliminary Blood - Venous No growth after 48 hours. Discharge Plan Discharge Anticipated Discharge Date/Time: 07/13/25 14:05 Patient Disposition: Home, Self-Care Discharge Diagnosis: Urinary tract infection Hypertension Referrals: Physician,Unknown J [Primary Care Provider, Medical] - 1 Week Discharge Medications: New lisinopril 5 mg Tablet 10 mg PO DAILY Qty: 30 0RF Protocol: Hold for SBP< HOLD for SBP < : 90 ciprofloxacin HCl 250 mg tablet 250 mg PO BID 5 Days Qty: 10 0RF Continued multivitamin Tablet 1 tab PO DAILY ascorbic acid (vitamin C) [Vitamin C] 500 mg Tablet 500 mg PO DAILY Qty: 30 0RF calcium carbonate 300 mg (750 mg) Tablet,Chewable 300 mg PO BID Discharge Orders: Discharge Order (Routine); Ordered 07/13/25 Ordered By: Adarsh Pan Activity on Discharge: As tolerated Stand Alone Forms: Patient Portal Discharge page Print Language: Persian Care Plan Goals: continue with antibiotics for urinary tract infection Initiate lisinopril 10mg for hypertension Health Concerns: Urinary tract infection Hypertension Plan of Treatment: Continue ciprofloxacin 250mg twice a day for 5 more days for urinary tract infection Initiated Lisinopril 10mg once a day. Check blood pressures at home, record in sheet and follow up with primary care provider Assessment: 85-year-old female who presented to the hospital for generalized weakness, found to have UTI, started on IV ceftriaxone. with urine culture positve for E coli and corynebacterium. transitioned to ciprofloxacin 250mg twice a day.
--- NOTE | 2025-07-13 13:39 | MHC.CM.PN ---
pt dcd home self care
--- NOTE | 2025-07-13 16:09 | PC.NURSE ---
Provider Marcus Pan notified via soup[employer]me of blood pressure before discharge. Provider placed new order, waiting to see effects of new medication, then provider okay to continue with discharge if SBP <160. Patient asymptomatic and still wants to go home, patient in agreement with plan and ride will come back around 17:00.
== END 2025-07-13 17:28 | disposition home or self-care (01) | DRG 689 ==
LOC: HO.ED 07-11 01:26 → HO.EDOVER 07-11 01:29 → HO.S3 07-11 10:21
PROVIDERS: Physician Assistant Medical; Admitting Provider Hospitalist; Emergency Provider Emergency Medicine; Visit Provider Student in an Organized Health Care Education/Training Program
DX: N39.0 Urinary tract infection, site not specified (principal); G92.8 Other toxic encephalopathy; J98.11 Atelectasis; I10 Essential (primary) hypertension; B96.20 Unspecified Escherichia coli [E. coli] as the cause of diseases classified elsewhere; Z20.822 Contact with and (suspected) exposure to COVID-19; Z79.899 Other long term (current) drug therapy
CPT/HCPCS: 36415; 70450; 71046; 80053; 81001; 83605; 83690; 83735; 84443; 85025; 87040; 87086; 87088; 87186; 87637; 90656; 93005; 97116; 97161; 97165; 99285; J0696; J1271; J1650; J7120

== ENCOUNTER → 2025-07-10 17:46 | Outpatient (BNV) | payer MEDICARE, OTHER, SELFPAY | PROVIDERS: Visit Provider Student in an Organized Health Care Education/Training Program | DX: R41.0 Disorientation, unspecified (principal); J90 Pleural effusion, not elsewhere classified; J98.11 Atelectasis | CPT/HCPCS: 70450; 71046 ==

== ENCOUNTER → 2025-07-10 17:48 | Outpatient (BNV) | payer MEDICARE, SELFPAY | PROVIDERS: Admitting Provider Hospitalist; Emergency Provider Emergency Medicine; Visit Provider Internal Medicine | DX: R94.31 Abnormal electrocardiogram [ECG] [EKG] (principal); R53.1 Weakness | CPT/HCPCS: 93010 ==

== ENCOUNTER → 2025-07-11 01:09 | Outpatient (BNV) | payer MEDICARE, SELFPAY | PROVIDERS: Admitting Provider Hospitalist; Emergency Provider Emergency Medicine; Visit Provider Student in an Organized Health Care Education/Training Program | DX: N39.0 Urinary tract infection, site not specified (principal); I10 Essential (primary) hypertension | CPT/HCPCS: 99223; 99233; 99239; 99499 ==